=== PATIENT | male | born 1940 | race Caucasian/White ===

== ENCOUNTER 2023-04-06 11:36 | Inpatient (IN) | payer OTHER, SELFPAY ==
[2023-03-30 08:20] VITALS: BMI 35.8
--- NOTE | 2023-03-30 09:05 | HPS.HSE ---
Family Physician
-
Family Physician: Reid Davis
Chief Complaint
-
Fatigue, stating he has been nodding off more frequently.
History of Present Illness
Mr. Cronin is a very pleasant 83 yom that presents with severe symptomatic associated with fatigue. Echocardiogram from 01/04/2024 is notable for an Aortic Valve p/m 76/48, ZEKE 0.6, pk adri. 4.37, no AI, EF 66%, mild MR, PAP 26. Cardiac
catheterization from 02/23/2023 shows mild-moderate CAD at the ostium of RCA with iFR measuring above ischemic threshold. He has been evaluated and all studies reviewed by the heart team in the SDM meeting on 03/23/2023. Patient has been recommended
for a (L) TF TAVR utilizing a 26mm S3.
Medical History
Past Medical History
Past Medical History: Reports CAD (mild to moderate), HTN, Valvular Disease (aortic stenosis) and Other (carotid stenosis, hyperlipidemia, CKD stage3)
Additional Past Medical History:
MICHAEL
Past Surgical History: Reports Other (MOHs to ear, hernia repair)
Social History
Tobacco: Smoker
Alcohol: Occasional
Drug: None
Personal:
Living: With Family
Employment: Employed (moid middle school teacher)
Family History
Family History: CAD
Allergies / Home Medications
Allergies reflects when Allergies were last updated in [facility].
Home Medications with original date entered in [facility]
Allergy/Medication List:
seasonal
Review of Systems
-
History Source: Patient
Constitutional: Reports See HPI
Respiratory: Reports No Symptoms
Cardiac: Reports No Symptoms
Abdomen/GI: Reports No Symptoms
: Reports No Symptoms
Musculoskeletal: Reports No Symptoms
Neurological: Reports No Symptoms
Psych: Reports No Symptoms
Physical Exam
Physical Exam
General: Well Developed and Obese
HEENT: NormoCephalic
Respiratory: Clear
Cardiac: Murmur (III/ PRITESH)
GI: Soft and Non Tender
Genito-urinary: Deferred by me
Skin: Warm and Dry
Neuro: Awake, Alert, Oriented and AO x 3
Psych: Calm
Laboratory Results
-
03/30/2023
HH: 12.0/36.3
Plt: 226K
BUN/Creatinine: 27/1.4
GFR: 50.18
Data Reviewed
-
Diagnostic Radiology: Report Reviewed by me
CT Scan: Report Reviewed by me and Discussed with Physician
Medical Tests (Nuc Med, Echo, EKG etc): Report Reviewed by me (echocardiogram, cardiac catheterization) and Discussed with Physician
Lab Data: Labs Reviewed by me
Old Records: Reviewed (office notes with Drs. Leone and Pilar)
Impression/Plan
-
IMPRESSION: Severe aortic stenosis
PLAN: (L) TF TAVR utilizing a 26mm S3.
Continue aspirin
Cardiac rehab consult
POD #1/#30 echocardiogram
[2023-03-30 09:08] LABS: % Basophils 0.8 % (0-2); % Eosinophils 6.3 % (0-6); % Immature Granulocytes 0.2 % (0-0.5); % Lymphocytes 23.9 % (20.5-51.1); % Monocytes 8.8 % (1.7-9.3); Absolute Basophils 0.1 10^3/uL (0-0.2); Absolute Eosinophils 0.5 10^3/uL (0-0.7); Absolute Lymphocytes 2.1 10^3/uL (1.2-3.4); Absolute Monocytes 0.8 10^3/uL (0.1-0.6); Absolute Neutrophils 5.1 10^3/uL (1.4-6.5); Hematocrit 36.3 % (39.0-52.0); Mean Corp Hgb Conc. 33.1 g/dL (33.0-37.0); Mean Corpuscular Hgb 33.1 pg (27.0-31.0); Mean Platelet Volume 9.2 fL (7.4-10.4); Nucleated Red Blood Cells % 0 % (-); Platelet Count 226 10^3/uL (130-400); Red Blood Cell Count 3.63 10^6/uL (4.70-6.10); Red Cell Dist. Width 12.6 % (11.5-14.5); White Blood Cell Count 8.6 10^3/uL (4.8-10.8)
[2023-03-30 09:15] LABS: Urine Albumin Negative (Neg - Trace); Urine Bilirubin Negative (Negative); Urine Character Clear (Clear); Urine Color Yellow; Urine Glucose Negative (Negative); Urine Ketone Negative (Negative); Urine Leukocyte Negative (Negative); Urine Nitrite Negative (Negative); Urine Occult Blood Trace (Negative); Urine Urobilinogen Negative (Neg - 1+)
[2023-03-30 09:16] LABS: INR 1.07; PT 13.9 Sec (11.4-14.6)
[2023-03-30 09:17] LABS: APTT 29.1 Sec (23.4-35.0)
[2023-03-30 09:52] LABS: Urine Squamous Cell 0-2 /LPF (Few)
[2023-03-30 09:53] LABS: Urine Bacteria Few (Negative)
[2023-03-30 10:08] LABS: ALT (SGPT) 25 U/L (0-50); AST (SGOT) 29 U/L (17-59); Albumin 4.1 g/dl (3.5-5.0); Alkaline Phosphatase 84 U/L (38-126); Blood Urea Nitrogen 27 mg/dl (9-20); Carbon Dioxide 28 mmol/L (22-30); Chloride 104 mmol/L (98-107); Direct Bilirubin 0.5 mg/dl (0.0-0.4); Estimated Creatinine Clearance 46 ml/min; Glucose 99 mg/dl (70-99); Potassium 4.7 mmol/L (3.5-5.1); Sodium 137 mmol/L (135-145); Total Bilirubin 1.5 mg/dl (0.2-1.3); Total Protein 6.8 g/dl (6.3-8.2); eGFR 50.18
[2023-03-30 10:14] LABS: NT-proBNP 1590 pg/ml
--- NOTE | 2023-03-30 10:38 | CM ---
CM met w/ patient during PATs for planned TAVR.
Patient informs that he resides w/ spouse in a private, 2 story home w/ 3 YOUSIF. Functionally, patient is indep. at baseline w/ ADLs, mobility without the use of any assisted device. Pt. works as a business solutions analyst. He has a CPAP machine at home, which he
uses regularly.
Patient has Rx plan and uses [facility] on [address] in [place].
Reviewed pre and post op routine.
Soap, shower instructions and TAVR booklet reviewed/provided.
Discussed post op restrictions to include lifting and driving restrictions.
Post op appointment w/ Cards, Cardiac Rehab and visit from [facility] Transitional Care RN reviewed. Patient agreeable to visit from [facility] Transitional [facility] RN.
Plan is for TAVR 04/06.
Anticipated DC plan is for home w/ CT Transitional Care RN.
CM to follow for DC planning needs.
[2023-03-30 12:13] LABS: Glycohemoglobin (HgbA1c) 5.9 % (4.0-5.6)
[2023-04-06] VITALS (16 sets, daily range): BP systolic 95–163; BP diastolic 45–71
--- NOTE | 2023-04-06 11:43 | CM ---
Reviewed chart. Mr. Cronin is in the operating room today. Prior to admission he resides with his spouse in a two story home with three steps to enter. Prior to admission he was independent with ambulation and adls. He has a CPAP Machine at home.
He has a prescription plan and uses [facility]. Medical work-up in progress. The discharge plan is to return hoe with his spouse and a home visit by the Cardiothoracic Transitional Care Nurse when medically stable.
[2023-04-06 14:37] LABS: ACT-LR - POC 327 Seconds (116-155)
[2023-04-06 14:52] LABS: ACT-LR - POC 294 Seconds (116-155)
--- NOTE | 2023-04-06 14:58 | W.CVOR.SURPR ---
CVOR Surgeon Immed Pre Op
-
I have examined this patient prior to performance of the scheduled procedure.
The patient's condition is unchanged from the time of the dictated/written History and
Physical and the patient is able to undergo the scheduled procedure.
--- NOTE | 2023-04-06 14:58 | W.IMMPOSTOP ---
Surgical Immed Post Op Note
-
Dictated: [id number]
STRUCTURAL HEART PROCEDURE NOTE: TAVR
Preoperative Dx:
Severe aortic stenosis (P/M 76/48)
Carotid stenosis
CKD3
HTN/HLD
MICHAEL
Postoperative Dx:
Same
Procedures:
1) R CUSTOM APPLICATOR access w/ tactile, U/S, and fluoroscopic guidance, micropuncture technique, limited angiography, 6Fr sheath placement
2) R CFV access w/ U/S and fluoroscopic guidance, seldinger technique, 6Fr sheath placement
3) L CUSTOM APPLICATOR access w/ tactile, U/S, and fluoroscopic guidance, micropuncture technique, limited angiography, 6Fr sheath placement
4) Placement of temporary RV pacing wire via R CFV w/ threshold testing
5) Placement of pigtail catheter in RCC w/ limited aortography & confirmation of co-planar valve deployment angles
6) Placement of perclose sutures x 2 into L CUSTOM APPLICATOR w/ 8Fr sheath placement
7) Placement of Florez E-sheath via R CUSTOM APPLICATOR (systemic heparinization)
8) Wire purchase across stenotic aortic valve
9) L TF TAVR w/ placement of 26mm PORTILLO 3 valve
10) Completion aortography
11) Completion TTE (no AI, mean gradient 7mmHg)
12) Removal of valve delivery system/Florez E-sheath w/ L CUSTOM APPLICATOR mgmt w/ perclose sutures x 2; 8Fr angioseal, manual pressure
13) Completion ileofemoral angiography
14) Removal of R CUSTOM APPLICATOR access w/ mgmt w/ 6Fr angioseal; manual pressure
15) Removal of temporary pacing wire and R CFV sheath; manual pressure
Marker Machine:
Dr. Lion Leone
Cardiac Surgeon:
Dr. Girish Segura
Anesthesia:
MAC & local to B/L groins
Cath Data:
Start: 1400hrs, Deploy: 1438hrs, End: 1453hrs
FT: 9.4min, mGy: 432.50, DAP:51.8314, Contrast: 119mL
LVEDP: 22mmHg
Post-TTE: Mean gradient 7mmHg, no AI
Implants:
Perclose x 2
6Fr angioseal x 1
8Fr angioseal x 1
Florez Lifesciences, 26mm, Model [id number], SN [id number]
Complications:
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
Condition:
Stable/guarded to recovery
--- NOTE | 2023-04-06 15:01 | ITS.CL.TAVR ---
Dispatcher [employer] - TAVR Report
TAVR PRocedure
Procedure Report:
TRANSCATHETER AORTIC VALVE REPLACEMENT
Date of Procedure: April 06, 2023
Referring: Dr. Lion Leone
Operators: Drs. Lion Leone and Girish Segura
PROCEDURE PERFORMED:
1. Successful placement of 26 mm Florez Julianna S3 aortic valve via left common femoral approach.
PREPROCEDURE NYHA CLASS: 3
DESCRIPTION OF PROCEDURE: The patient was referred for assessment of severe symptomatic aortic stenosis and following a comprehensive evaluation it was felt that transcatheter aortic valve replacement (TAVR) would be the most appropriate treatment.
Informed consent was obtained prior to the procedure. A 'time-out' was called and the procedural plan was verbally confirmed by anesthesia, surgery, perfusion, and laborer wrecking and salvaging staff.
Arterial access was obtained in the right common femoral artery using ultrasound guidance and micropuncture technique. A 6 Fr sheath was inserted. Ultrasound guidance was then utilized to gain access into the right common femoral vein and a 6 Fr
sheath was inserted. Attention was then turned to accessing the left common femoral artery using ultrasound guidance and micropuncture technique. A 6 New Zealander sheath was inserted. Angiography revealed appropriate positioning of the arteriotomy 4.
Closure with 2 Perclose devices.
A transvenous pacemaker wire was then advanced to the right ventricular apex where excellent pacing thresholds were obtained.
An angled pigtail catheter was then advanced through the right common femoral sheath and positioned in the proximal ascending thoracic aorta / right coronary cusp. Angiography was performed to define a coplanar angle facilitating positioning and
delivery of the TAVR device. UKRAINIAN 0/INVISIBLE BRACES ORTHODONTIST 12 appear to be a reasonable coplanar angle.
Preclosure of the left femoral arteriotomy was then performed using 2 Perclose devices and was followed by placement of an 8 Fr aterial sheath.
An AL-1 catheter was then advanced to the proximal descending thoracic aorta over 0.035' J-tipped guidewire. An Amplatz Extra-Stiff wire was then advanced through the AL-1 catheter to the proximal descending thoracic aorta. The AL-1 catheter was
removed and the supportive wire was utilized to facilitate delivery of the Florez eSheath and dilator. Heparin, 9000 units, was administered and the ACT was monitored throughout the procedure.
The AL-1 catheter was then readvanced through the Florez eSheath. The 0.035' stiff wire was allowed to drift across the aortic arch and the AL1 was positioned just above the aortic valve. The stenotic leaflets were probed with a Soft-tip Straight
wire. The aortic leaflets were crossed and the AL-1 catheter followed the Soft-tip Straight wire to the mid left ventricle. The wire was removed. Left ventricular end-diastolic pressures was measured at 22 mmHg.
An Amplatz Extra-Stiff wire with a generous curved tip was then advanced to the mid left ventricle. The AL-1 catheter was removed and the Amplatz wire was left in place in order to facilitate delivery of the Florez delivery system. A 26 mm
Florez JULIANNA S3 valve was brought to the table and the orientation of the valve on the balloon delivery system was confirmed by all operators. The JULIANNA S3 valve was advanced through the eSheath and into the proximal descending thoracic aorta.
The JULIANNA valve was centered on the delivery balloon and the entire system was retroflexed as across the aortic arch in an UKRAINIAN projection. The JULIANNA S3 delivery system was then advanced across the stenotic aortic leaflets. The pusher was
retracted. Angiography confirmed appropriate positioning of the valve and rapid pacing was undertaken. The 26 mm JULIANNA S3 valve was deployed during rapid pacing. Valve deployment was uneventful. Aortography following valve deployment suggested
no to trivial aortic insufficiency while the wire was still across the valve in the left ventricle.
The post valve deployment transthoracic echocardiogram was notable for 7 mmHg
The Florez valve delivery system was removed. The Florez eSheath was removed and the Perclose knots were advanced to the arteriotomy site. Hemostasis was suboptimal and an 8 New Zealander sheath was reinserted into the left common femoral artery with
excellent hemostasis. Aortography with left common femoral runoff demonstrated no extravasation around the sheath and the decision was made to place an 8 New Zealander Angio-Seal which achieved excellent hemostasis in the left common femoral artery.
A 6 New Zealander Angio-Seal was then utilized to obtain hemostasis in the right common femoral artery. The temporary pacemaker was removed and manual pressure was held over the 6 New Zealander femoral venous access site.
Protamine was administered to reverse the intravenous anticoagulant.
Fluoro Time: 9.4 min, Dose: 432.5 mGy, DAP : 51.8 Gy.cm2
CONCLUSIONS:
1. Severe symptomatic aortic stenosis. Successful deployment of a 26 mm JULIANNA S3 valve with a post valve deployment mean gradient of 7 mmHg
Copy to: Dr. Lion Leone
--- NOTE | 2023-04-06 15:05 | W.PN.UPDATE ---
Update Note
Progress Note Update
Reviewed Mr. Cronin with the heart team in the preTAVR SDM meeting and confirmed a 26mm S3 via (L) transfemoral access. Patient will resume aspirin post TAVR. LVEDP 22mmHg. #26mm S3 (serial# [id number]) successfully deployed via (L) transfemoral
access. Post implant MG 7mmHg.
--- NOTE | 2023-04-06 16:49 | PTCARENOTE ---
Pt received post TAVR awake, alert and oriented. Bilateral groin sites WNL. Bedrest and flat maintained. Good pedal pulses and neuro checks WNL. Pt denies any pain or sob. Room air sat 96%.
[2023-04-06] MEDS: STERILE WATER FOR INJECTION 16 ML IV (17:29)
[2023-04-06] MEDS: ZINACEF 1500 MG IV (17:30)
[2023-04-06] MEDS: NON-FORMULARY ITEM 500 MG PO (17:31)
[2023-04-06] MEDS: STERILE WATER FOR INJECTION 8.30000000000000071 ML IV (20:13)
[2023-04-06] MEDS: FLUSH (NSS) 1 FLUSH IV (20:14)
[2023-04-06] MEDS: ZINACEF 750 MG IV (20:14)
[2023-04-06] MEDS: TENORMIN 25 MG PO (22:16)
[2023-04-06] MEDS: ZYRTEC 10 MG PO (22:16)
--- NOTE | 2023-04-07 02:08 | PTCARENOTE ---
Received patient at change of shift this PM. AAOx3. He is answering all questions appropriately and his neurological checks have been intact. His pupils (+3) are equal, round, and reactive. He has normal strength in all extremities. VSS. He is NSR
on the monitor. HR in the 70s-80s. INT patent. He denies chest pain or discomfort. His B/L groin sites appear clean, dry, and intact. He is receptive to teaching and motivated. We discussed his medications and he has no further questions about these
at this time. He denies pain and appears comfortable in bed. Will continue to monitor.
[2023-04-07 03:58] VITALS: BP 126/47
[2023-04-07 04:38] LABS: Hematocrit 30.4 % (39.0-52.0); Hemoglobin 10.2 g/dL (13.0-18.0); Mean Corp Hgb Conc. 33.6 g/dL (33.0-37.0); Mean Corpuscular Hgb 33.4 pg (27.0-31.0); Mean Corpuscular Volume 99.7 fL (80.0-94.0); Mean Platelet Volume 9.4 fL (7.4-10.4); Platelet Count 168 10^3/uL (130-400); Red Blood Cell Count 3.05 10^6/uL (4.70-6.10); Red Cell Dist. Width 12.9 % (11.5-14.5); White Blood Cell Count 8.6 10^3/uL (4.8-10.8)
[2023-04-07 05:00] LABS: Blood Urea Nitrogen 27 mg/dl (9-20); Calcium 8.4 mg/dl (8.4-10.2); Carbon Dioxide 23 mmol/L (22-30); Chloride 104 mmol/L (98-107); Estimated Creatinine Clearance 54 ml/min; Glucose 87 mg/dl (70-99); Potassium 4.7 mmol/L (3.5-5.1); Sodium 136 mmol/L (135-145); eGFR > 60.00
[2023-04-07 05:06] VITALS: BMI 35.2
--- NOTE | 2023-04-07 05:42 | W.PN.CT ---
Addendum entered and electronically signed by Girish Segura MD 04/07/23 08:10:
I saw and examined the patient.
The PA's note was reviewed and I agree with the note.
Comment:
POD#1
No major issues. LBBB resolved, tolerated BB
- ASA only anticoagulation
- Echocardiogram today
- Resume home meds
- D/C home today
Original Note:
Today's Communication / Plan
-
-pod #1
-no issues overnight
-transient LBBB postop TAVR-resolved, tolerated Atenolol last night
-nsr 60s, frequent PACs overnight. No piero or pauses
-Echo today
-current meds (ASA, Lipitor, Atenolol, Zestril)
-encourage IS, OOB, ambulate
Assessment / Plan
-
- Severe symptomatic - s/p L TF TAVR w/ placement of 26mm PORTILLO 3 valve on 04/06/23, pod #1
- LVEDP: 22mmHg
- Post-TTE: Mean gradient 7mmHg, no AI
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
- moderate CAD (70% OM2)
- Carotid stenosis
- CKD3 (Cr 1.4)
- HTN/HLD
- MICHAEL
- pre DM (HgA1c 5.9)
- current smoker
- ear/back Moh's surgery
- hernia repair
- allergic rhinitis
- dental extraction recently - finished course of Amoxil preop
- Acute postop LBBB - transient
Discussed patient care with: Nursing and Care Team
Subjective
Procedure
- s/p L TF TAVR w/ placement of 26mm PORTILLO 3 valve on 04/06/23
-
Date of Service: April 06, 2023
Objective Data
-
Lab Results
03/30/23 08:34
03/30/23 08:34
PT 13.9 Sec (11.4-14.6) 03/30/23 08:34
INR 1.07 03/30/23 08:34
APTT 29.1 Sec (23.4-35.0) 03/30/23 08:34
Vital Signs
Vital Signs
Temp Pulse Resp BP Pulse Ox
97.6 F 87 18 162/64 97
04/06/23 22:15 04/06/23 22:19 04/06/23 22:15 04/06/23 22:16 04/06/23 22:15
SaO2: 97
Physical Exam
-
General: Awake and AOx3
Cardiovascular: Regular rate & rhythm, No Murmurs and No Rub
Respiratory: Wheeze (mild occasional with inspiration. No rales) and Decreased Breath Sounds
Incision: Other (groins are cdi, soft, nontender, no hematoma b/l)
Extremities: Edema +1 (2+ PT b/l)
Data Reviewed
-
Lab Results: Results Reviewed
Medications: Active Meds Reviewed
Chest X-Ray: Report Reviewed and Image Reviewed
ECG: Report Reviewed and Image Reviewed
[2023-04-07 07:33] VITALS: BP 144/58
--- NOTE | 2023-04-07 08:15 | W.PN.ANS.POP ---
Anesthesia Post Operative
- Anesthesia Post Op Note
Vital Signs Stable-See Nursing Note: Yes
Airway Patent: Yes
Adequate Pain Control: Yes
Change in Mental Status: No
Current Postoperative Nausea & Vomiting: No
Anesthesia Complications: No
General Anesthetic Recall: No
Unplanned Admission: No
Post Op Hydration Adequate: Yes
[2023-04-07] MEDS: ASPIR LOW (ENTERIC COATED) 81 MG PO (08:43)
[2023-04-07] MEDS: ZESTRIL 10 MG PO (08:43)
[2023-04-07] MEDS: LIPITOR 40 MG PO (08:43)
--- NOTE | 2023-04-07 09:08 | W.DCSUMMARY ---
Addendum entered and electronically signed by XIOMARA Carey 04/07/23 13:24:
Edit: Due to the patient's transient LBBB, he will be discharged home with a heart monitor.
Original Note:
Discharge Summary
Discharge Data
Date of Admission: 04/06/23
Date of Discharge: 04/07/23
Total time spent discharging patient (in min): 25
-
Pending Results: No
Hospital Course
Primary care physician:
Reid Davis
Outpatient bevel mill operator:
Carl Lenoe
Inpatient consultants:
[facility].
Procedures:
1. Left transfemoral transcatheter aortic valve replacement with placement of #26 mm PORTILLO 3 valve
Primary Diagnosis:
1. Severe Aortic Stenosis
Secondary Diagnoses:
1. Chronic kidney disease stage III
2. Carotid Stenosis
3. Hypertension
4. Hyperlipidemia
5. Obstructive sleep apnea
HPI: 83-year-old male with severe aortic stenosis presents on 04/06 for an elective transfemoral transcatheter aortic valve replacement with Dr. Segura.
Hospital course:
Patient was electively admitted on 04/[address] Segura. He received a successful placement of a number 23 mm PORTILLO 3 aortic valve in the Passenger Car [employer]. Immediately post-procedure patient developed a new left bundle branch block that
resolved. He returned to PACU for recovery and patient was transferred to IVU overnight and was restarted on his home regimen. On 2 postop day #1 patient received a chest x-ray which was stable, an echocardiogram that showed a mean gradient of 7.
He was deemed stable for discharge and discharge instructions were reviewed with the patient.
Home medication changes:
None
Discharge Plan
-
Patient Disposition: Home (Routine Discharge)
Discharge Diagnosis/Procedures: TF TAVR
Diet: Low Fat, Low Cholesterol and 2 Gram Sodium
Activity: As tolerated
Driving Restrictions: No driving for 1 week
Bathing Restrictions: OK to Shower
Others Tests: 30-day follow up echocardiogram:
Other Services: Cardiac Rehab
Wound Care: No lotions, powders, or creams
Specialty Instructions: Weigh Daily- Call MD for wt gain/loss 3 lbs overnight/5 lbs in 1 week
Referrals:
CT Transitional Care Nurse [Outside] - in one to two days
(
The Cardiothoracic Transitional Care Nurse will call you to set up a visit in 1-2 days.)
Reid Davis MD [Family Provider] - in four to six weeks (Please make an appoinment in four to six weeks.)
Denise Nix PA-C [Specified Professional Personl] - 05/03/23 9:40 am
Prescriptions:
Continued
cetirizine 10 MG tablet
10 mg PO HS
aspirin 81 MG tablet,delayed release (DR/EC)
81 mg PO DAILY
fluticasone propionate 1 SPRAY spray,suspension
2 spray intranasal DAILY
atenolol 25 MG tablet
25 mg PO HS
lisinopril 10 MG tablet
10 mg PO DAILY
atorvastatin 40 mg Tablet
40 mg PO DAILY
vitamin Q72-blsza acid 0.5-1 mg Tablet
1 tab PO DAILY
Discontinued
amoxicillin 500 mg Tablet
500 mg PO Q8H
Discharge Orders:
Discharge Patient (As Directed); Ordered 04/07/23
Ordered By: Alexsandra Adhikari
Care Plan Goals
Care Plan Goals:
Problem: Readiness for enhanced knowledge related to diagnosis and treatment plan
Goal: Understand your diagnosis and treatment plan needs, including medications if applicable.
Instructions: Know your diagnosis, underlying causes and treatment plan options, including medications if applicable. Consult with your health care team to learn about your diagnosis and treatment plan, including medications if applicable.
--- NOTE | 2023-04-07 09:16 | W.PN.CARDCBS ---
Today's Communication / Plan
-
Okay for discharge if echo okay
Will need ambulatory telemetry prior to discharge given transient left bundle branch block
From my standpoint, okay to continue atenolol
Impression / Plan
-
Impression:
Florez PORTILLO 3 TAVR 04/06/23
Moderate CAD, 70% OM 2
CKD
Hypertension/hyperlipidemia
Obstructive sleep apnea
Smoker
Transient left bundle branch block post procedure, resolved
Plan:
He looks well despite transient left bundle branch block.
Echo currently in progress
Ambulatory quality assurance monitor body to be placed prior to discharge given transient left bundle branch block.
Presuming echo looks good, he will be okay for discharge.
Progress Note - Solutions Architect
Subjective
Date of Service: April 07, 2023:
Allergies: None
Meds: Reviewed
Outpatient meds: Reviewed
PMH/PSH/SH/FH: Reviewed
Review of systems: Negative except as above
Hemoglobin 10.2, BUN/creatinine 27 and 1.2, potassium 4.7
Chest x-ray NAD
ECG April 07: Sinus rhythm PACs, new left bundle
ECG today: Sinus rhythm, PACs, biphasic T waves V4 through V6 consider lateral ischemia, left bundle has resolved
Objective
Labs:
04/07/23 04:20
04/07/23 04:20
Labs
Hgb 10.2 g/dL (13.0-18.0) L 04/07/23 04:20
Hct 30.4 % (39.0-52.0) L 04/07/23 04:20
Plt Count 168 10^3/uL (130-400) 04/07/23 04:20
PT 13.9 Sec (11.4-14.6) 03/30/23 08:34
INR 1.07 03/30/23 08:34
APTT 29.1 Sec (23.4-35.0) 03/30/23 08:34
Sodium 136 mmol/L (135-145) 04/07/23 04:20
Potassium 4.7 mmol/L (3.5-5.1) 04/07/23 04:20
BUN 27 mg/dl (9-20) H 04/07/23 04:20
Creatinine 1.2 mg/dL (0.7-1.3) 04/07/23 04:20
Glucose 87 mg/dl (70-99) 04/07/23 04:20
Vital Signs and I&O:
Vital Signs
Temp Pulse Resp BP Pulse Ox
36.7 C 81 16 144/58 96
04/07/23 07:31 04/07/23 08:43 04/07/23 07:31 04/07/23 08:43 04/07/23 07:31
Vital Signs
Temp Pulse Resp BP Pulse Ox
36.7 C 81 16 144/58 96
04/07/23 07:31 04/07/23 08:43 04/07/23 07:31 04/07/23 08:43 04/07/23 07:31
Intake & Output
04/05/23 04/06/23 04/07/23 04/08/23
07:59 07:59 07:59 07:59
Intake Total 720 / 720
Balance 720 / 720
Physical Exam
Physical Exam
No acute distress, echo in progress
144/58, pulse 81, resp rate 16, afebrile
Head neck exam unremarkable, lungs few wheezes, cardiac regular rate rhythm without obvious murmur JVD okay, carotids okay, abdomen benign, extremities without edema, pulses palpable, neuro nonfocal, musculoskeletal intact
[2023-04-07 11:06] VITALS: BP 123/54
[2023-04-07 11:13] VITALS: BP 137/56
[2023-04-07 11:16] VITALS: BP 123/54; BP 137/56; PULSE 67
--- NOTE | 2023-04-07 14:29 | W.PN.UPDATE ---
Update Note
Progress Note Update
Rhythmstar monitor applied to patient on discharge. Reviewed instructions on how to apply, report symptoms, charge and shade cloth finisher with patient and his . Allowed for and answered questions.
== END 2023-04-07 14:41 | disposition home or self-care (01) | DRG 267 ==
LOC: IVU 11:36
PROVIDERS: Nurse Practitioner; ADMITTING PHYSICIAN Thoracic Surgery (Cardiothoracic Vascular Surgery); CONSULT PHYSICIAN Internal Medicine Interventional Cardiology; FAMILY PHYSICIAN Family Medicine
PROC: 02RF38Z Replacement of Aortic Valve with Zooplastic Tissue, Percutaneous Approach (ICD-10-PCS; 2023-04-06)
DX: I35.0 Nonrheumatic aortic (valve) stenosis (principal); I44.7 Left bundle-branch block, unspecified; I49.1 Atrial premature depolarization; I65.29 Occlusion and stenosis of unspecified carotid artery; N18.30 Chronic kidney disease, stage 3 unspecified; I12.9 Hypertensive chronic kidney disease with stage 1 through stage 4 chronic kidney disease, or unspecified chronic kidney disease; E78.5 Hyperlipidemia, unspecified; G47.33 Obstructive sleep apnea (adult) (pediatric); I25.10 Atherosclerotic heart disease of native coronary artery without angina pectoris; F17.200 Nicotine dependence, unspecified, uncomplicated; R73.03 Prediabetes
CPT/HCPCS: 93308; 33361; 36415; 71045; 71046; 80048; 80053; 81003; 81015; 82248; 83036; 83880; 85025; 85027; 85347; 85610; 85730; 86850; 86900; 86901; 87070; 93005; 93306; 93321; 93325; C1760; C1769; C1894; Q9967

== ENCOUNTER 2023-04-08 17:17 | Inpatient (IN) | payer OTHER, SELFPAY ==
[2023-04-08 14:05] VITALS: BP 144/46
--- NOTE | 2023-04-08 14:42 | CON.CAR ---
Consultation
Consultation Request
Date/Time Consultation Requested: 04/08/2023 at 1500
Date/Time Consultation Performed: 04/08/2023 at 1600
Requesting Provider: Dr. Dae Faustin
Performing Provider: Lion Cronin
Reason for Consultation: Heart block with A-V dissociation
Medical History
-
Chief Complaint: Abnormal ambulatory telemetry following TAVR
History of Present Illness:
83-year-old man with history of aortic stenosis, nonobstructive CAD who underwent Florez PORTILLO 3 TAVR on April 06. He had transient left bundle branch block postprocedure but otherwise an uncomplicated course and was discharged with a
rhythm*monitor yesterday. We received a transmission this morning suggesting atrial tachycardia or flutter with variable block and a ventricular response of approximately 60. EKG in the emergency department showed probable sinus tachycardia with a
rate in the 130s with a left bundle branch morphology escape rhythm producing A-V dissociation, ventricular rate 60. Patient is asymptomatic. ECG preprocedure showed sinus rhythm with PACs and normal QRS duration.
Past Medical History
Past Medical History: CAD (70% OM lesion), HTN, Hypercholesterolemia, Valvular Disease (Aortic stenosis status post Florez PORTILLO 3 TAVR April 06, 2023) and Other (CKD 3, obstructive sleep apnea, ongoing tobacco abuse, high-grade left carotid
artery stenosis)
Past Surgical History: Other (Herniorrhaphy, Mohs surgery, lumbar surgery,)
Social History
Tobacco: Smoker
Alcohol: Occasional
Drug: None
Personal:
Living: With Family
Employment: Retired
Family History
Family History: Reviewed & Not Pertinent
Allergies / Home Medications
Allergy/AdvReac Type Severity Reaction Status Date / Time
pollen extracts Allergy SEASONAL-NASAL Verified 04/06/23 16:07
SYMPTOMS
Medication Instructions Recorded Confirmed Type
aspirin 81 mg tablet,delayed 81 mg PO DAILY 03/30/18 04/06/23 History
release
cetirizine 10 mg tablet 10 mg PO HS 03/30/18 04/06/23 History
fluticasone propionate 50 2 spray intranasal DAILY 03/30/18 04/06/23 History
mcg/actuation nasal
spray,suspension
atenolol 25 mg tablet 25 mg PO HS 08/18/21 04/06/23 History
lisinopril 10 mg tablet 10 mg PO DAILY 08/18/21 04/06/23 History
atorvastatin 40 mg tablet 40 mg PO DAILY 02/23/23 04/06/23 History
vitamin B12 0.5 mg-folic acid 1 mg 1 tab PO DAILY 02/23/23 04/06/23 History
tablet
Review of Systems
-
All other systems: Negative unless noted
Physical Exam
Vital Signs
Temp Pulse Resp BP Pulse Ox
36.6 C 62 16 144/46 97
04/08/23 14:05 04/08/23 14:05 04/08/23 14:05 04/08/23 14:05 04/08/23 14:05
Physical Exam
General: No Apparent Distress
HEENT: Normocephalic
Respiratory: Wheezes (Rare scattered wheezes)
Cardiac: Regular Rhythm, Murmur (Very soft systolic murmur, JVD okay) and Peripheral Edema (Trace mild)
Musculoskeletal: No Clubbing, No Cyanosis and Edema (Mild)
Skin: Warm
Neuro: Awake
Psych: Calm
Impression / Plan
-
Impression:
Atrial tachycardia/sinus tachycardia with at least second-degree AV block/A-V dissociation and junctional escape with left bundle, new since TAVR 04/06/2023
Florez PORTILLO 3 TAVR 04/06/23
Moderate CAD, 70% OM 2
CKD
Hypertension/hyperlipidemia
Obstructive sleep apnea
Smoker
Plan:
Will observe on telemetry, hold atenolol, ask EP to review regarding need for pacemaker implantation.
Currently, patient appears to be stable hemodynamically.
Data Reviewed
-
EKG: Tracing Personally Visualized and interpreted
Labs: Labs Reviewed by me (Hemoglobin 10.4, platelets 150, BUN and creatinine 38 and 1.8, creatinine had been 1.2, troponin is 1.2, proBNP is 3610, normal TSH)
Old Records: Reviewed
[2023-04-08 15:34] LABS: % Basophils 0.3 % (0-2); % Eosinophils 3.6 % (0-6); % Immature Granulocytes 0.6 % (0-0.5); % Lymphocytes 15.9 % (20.5-51.1); % Monocytes 14.4 % (1.7-9.3); % Neutrophils 65.2 % (42.2-75.2); Absolute Eosinophils 0.3 10^3/uL (0-0.7); Absolute Immature Granulocytes 0.1 10^3/uL (0-0.05); Absolute Lymphocytes 1.4 10^3/uL (1.2-3.4); Absolute Monocytes 1.3 10^3/uL (0.1-0.6); Absolute Neutrophils 5.7 10^3/uL (1.4-6.5); Hematocrit 30.7 % (39.0-52.0); Hemoglobin 10.4 g/dL (13.0-18.0); Mean Corp Hgb Conc. 33.9 g/dL (33.0-37.0); Mean Corpuscular Hgb 32.9 pg (27.0-31.0); Mean Corpuscular Volume 97.2 fL (80.0-94.0); Mean Platelet Volume 9.6 fL (7.4-10.4); Nucleated Red Blood Cells % 0 % (-); Platelet Count 150 10^3/uL (130-400); Red Blood Cell Count 3.16 10^6/uL (4.70-6.10); Red Cell Dist. Width 12.9 % (11.5-14.5); White Blood Cell Count 8.7 10^3/uL (4.8-10.8)
[2023-04-08 15:50] LABS: ALT (SGPT) 17 U/L (0-50); AST (SGOT) 34 U/L (17-59); Albumin 3.3 g/dl (3.5-5.0); Alkaline Phosphatase 65 U/L (38-126); Blood Urea Nitrogen 38 mg/dl (9-20); Calcium 8.6 mg/dl (8.4-10.2); Carbon Dioxide 26 mmol/L (22-30); Chloride 100 mmol/L (98-107); Glucose 123 mg/dl (70-99); Potassium 4.5 mmol/L (3.5-5.1); Sodium 135 mmol/L (135-145); Total Bilirubin 1.6 mg/dl (0.2-1.3); Total Protein 5.8 g/dl (6.3-8.2); eGFR 37.12
[2023-04-08 15:57] LABS: NT-proBNP 3610 pg/ml
--- NOTE | 2023-04-08 16:30 | ED.GENMED ---
History of Present Illness
General
Chief Complaint: Heart Rate Problem
Source: patient
Exam Limitations: none
Time Seen by Provider: 04/08/23 14:59
Nursing documentation reviewed up to this point in time: agreed with
Travel History
Have you had any contact with someone who has COVID-19?: No
Do you have any symptoms of coronavirus? Fever > 100 degrees, chills, cough, shortness of breath, sore throat, loss of taste or smell, muscle aches, or headache?: No
History of Present Illness
History of Present Illness:
Patient status post TAVR procedure, presents to ED after Holter monitor showed possible irregular heart rhythm. Prior to discharge, after the procedure, patient did have transient episode of left bundle branch block on the monitor, with
necessitated patient being discharged home on Holter monitor. It is Holter monitor that irregular heart rhythm today, without any symptoms. Patient was advised to come to ED by Dr. WILL Cronin, cardiology. Patient otherwise denies chest pain or
shortness of breath. Denies dizziness. Denies palpitations. Denies nausea or vomiting.
Past History
Past History
ED Past Medical History: HTN
Social History
Tobacco: Smoker
Personal:
Living: with family
Employment: Employed
Review of Systems
Review of Systems
Allergies reviewed?: Yes
All Other Systems: ROS reviewed and negative except as documented in HPI and ROS
Constitutional: Reports no symptoms
EENT: Reports no symptoms
Respiratory: Reports no symptoms
Cardiac: Reports no symptoms
ABD/GI: Reports no symptoms
: Reports no symptoms
Musculoskeletal: Reports no symptoms
Skin: Reports no symptoms
Neurological: Reports no symptoms
Phy Exam
Physical Exam
Physical Exam:
Physical Exam
General: no apparent distress, not acutely ill. afebrile
Head: nc/at. eomi
Neck: supple. no meningeal signs.
Heart: s1/s2 regular rate and rhythm, no murmur. equal radial pulses.
Lungs: no acute respiratory distress. clear bilaterally
Abdomen: normal bowel sounds. not tender.
Neuro: alert and oriented. no focal neurological deficits
Skin: no rash
Psychiatric: well kept. interactive and cooperative
Extremities: no edema. no calf tenderness.
Course
Orders/Labs/Results
Orders:
Orders
04/08/23 14:11
Electrocardiogram (*1) Urgent
Reason for Study: Abnormal EKG
EKG- Treatment ONCE
04/08/23 Dinner
Cholesterol Lowering
At Your Request: Full Participation
Cholesterol Lowering: Sodium, 2 Gram
04/08/23 15:25
Complete Blood Count/With Diff Urgent
Comprehensive Metabolic Panel Urgent
Magnesium Urgent
NT-proBNP Urgent
TSH Reflex To Free T4 Urgent
Troponin I Urgent
04/08/23 16:09
Add On- LAB Urgent
Tests Added?: TSH with reflex to T4
04/08/23 16:31
Admit/Transfer Patient As Directed
Co-Sign Provider:
Level of Care: Inpatient admission
Assign to:: IVU
Physician / Group: hosp
Diagnosis: Third-degree heart block
Reason for Hospitalization: Heart block
Expected length of stay greater than two midnights?: Yes
ELOS- Estimated Length of Stay in days: 2
I certify the patient meets the requirements for IP care: Yes
Reason for Overnight Stay: New Dysrhythmia
04/08/23 16:33
Code Status As Directed
Resuscitation Status: Full Code
04/08/23 16:39
CARDIOLOGY CONSULT Routine
Consulting Provider: Lion Cronin
Was physician already notified: Yes
04/08/23 19:40
0.9% Sodium Chloride 1000 ml [Nss] 1,000 ml IV 60 mls/hr
Acetaminophen [Tylenol] 650 mg PO Q4HPRN PRN
Aspirin Low Dose EC [Aspir Low (Enteric Coated)] 81 mg PO QPM
04/08/23 19:40
Activity As Directed
Activity Level: With Assistance
Pneumatic Compression Sleeves As Directed
Type: Knee high
Vital Signs As Directed
Frequency: Per unit guidelines
Pulse Ox/spot Check [RESP] Routine
Quantity: 1
DX Deep Vein Thrombosis Video Routine
04/08/23 20:00
Heparin 5,000 units SC Q12
04/08/23 22:00
Cetirizine HCl [Zyrtec] 10 mg PO HS
04/08/23 23:14
Troponin I Q6H
04/09/23 03:45
Basic Metabolic Panel IN AM
Complete Blood Count/No Diff IN AM
Troponin I Q6H
04/09/23 06:00
EKG [Electrocardiogram (*1)] IN AM
Reason for Study: Abnormal EKG
NPO
Allow oral meds: Yes
Allow clear liquids: No
04/09/23 08:00
Atorvastatin [Lipitor] 40 mg PO DAILY
Lisinopril [Zestril] 10 mg PO DAILY
fluticasone propionate 2 spray NASAL DAILY
04/09/23 12:00
Cyanocobalamin [Vitamin B-12] 1,000 mcg PO NOON
Abnormal Lab Results
04/08/23
15:25
RBC 3.16 L 10^6/uL
(4.70-6.10)
Hgb 10.4 L g/dL
(13.0-18.0)
Hct 30.7 L %
(39.0-52.0)
MCV 97.2 H fL
(80.0-94.0)
MCH 32.9 H pg
(27.0-31.0)
Abs Immat Gran (auto) 0.1 H 10^3/uL
(0-0.05)
Absolute Monos (auto) 1.3 H 10^3/uL
(0.1-0.6)
Immature Gran % 0.6 H %
(0-0.5)
Lymphocytes % 15.9 L %
(20.5-51.1)
Monocytes % 14.4 H %
(1.7-9.3)
BUN 38 H mg/dl
(9-20)
Creatinine 1.8 H mg/dL
(0.7-1.3)
Glucose 123 H mg/dl
(70-99)
Total Bilirubin 1.6 H mg/dl
(0.2-1.3)
Troponin I 1.210 H* ng/ml
Total Protein 5.8 L g/dl
(6.3-8.2)
Albumin 3.3 L g/dl
(3.5-5.0)
04/08/23 15:25
04/08/23 15:25
Vital Signs
Initial and Last Documented VS:
Initial Vital Signs
Temp Pulse Resp BP Pulse Ox
97.8 F 62 16 144/46 97
04/08/23 14:05 04/08/23 14:05 04/08/23 14:05 04/08/23 14:05 04/08/23 14:05
Last Documented Vital Signs
Temp Pulse Resp BP Pulse Ox
98.0 F 64 18 147/78 96
04/09/23 07:29 04/09/23 11:00 04/09/23 07:29 04/09/23 07:29 04/09/23 07:51
MDM/Problems Addressed
MDM/Problems Addressed:
Pt evaluated in ED by Dr.DL Cronin, including review of EKG which revealed potential A-V dissociation versus slow atrial flutter rhythm. Patient will be admitted tonight for further evaluation, including potential pacemaker placement.
*Critical Care Note
Total Time (30-74mins, 75-104mins- exclusive of procedures): Not Applicable
ED Attending Note
-
Portions of this chart may have been created with voice recognition software.� Occasional wrong word or��sound alike� substitutions may have occurred due to the inherent limitations of voice recognition software.
Discharge Plan
Departure
Patient Disposition: Admit
Date of Disposition: 04/08/23
Time of Disposition: 16:39
Admit to: IVU
Presentation/result/management discussed w/ accepting MD/DO: Hospitalist
Discharge Problem:
Abnormal EKG
Interventions
Interventions:
*General Assessment Last Done: 04/08/23 14:11
*Neglect/Abuse Screening Last Done: 04/08/23 14:11
ED- Fall Risk Assessment Last Done: 04/08/23 14:11
*Nursing Disposition Last Done: 04/08/23 19:39
ED- Cardiac Assessment Last Done: 04/08/23 14:11
ED- Pulmonary Assessment Last Done: 04/08/23 14:11
Discharge Date and Time
Discharge Date/Time: 04/08/23 19:39
--- NOTE | 2023-04-08 16:40 | HPS.HSE ---
Family Physician
-
Family Physician: Reid Davis
Chief Complaint
-
Patient was told to come to the emergency room due to abnormal reading on his Holter monitor after recent valve replacement
History of Present Illness
Patient is an 83-year-old male just had a TAVR procedure on 06 April at that time he was sent home on a Holter monitor related to a history of left bundle branch block conduction delay and irregular heart rhythm and was found to have A-V
dissociation prompting need for admission and transient left bundle branch block that continued he can maintains no symptoms of chest pain shortness of breath or exertional symptoms. He denies any dizziness denies any palpitations his chronic
comorbidities include a history of obstructive sleep apnea essential hypertension bilateral carotid stenosis worse on the right along with CKD 3 and still smoker.
He took his last dose of beta-blockade in the form of atenolol 25 mg last night
Medical History
Past Medical History
Past Medical History: Reports Arrhythmia, CAD, HTN, Hypercholesterolemia, Renal Failure and Valvular Disease
Additional Past Medical History:
Prior history of obtuse marginal 70% stenosis
Past Surgical History: Reports Cardiac (TAVR April 06)
Additional Past Surgical History:
Prior hernia repair
Social History
Tobacco: Smoker
Alcohol: None
Drug: None
Personal:
Living: With Family
Employment: Employed (cab driver)
Family History
Family History: Not pertinent
Allergies / Home Medications
Allergies reflects when Allergies were last updated in [employer].
Home Medications with original date entered in [employer]
Allergy/Medication List:
Allergies
Allergy/AdvReac Type Severity Reaction Status Date / Time
pollen extracts Allergy SEASONAL-NASAL Verified 04/06/23 16:07
SYMPTOMS
Home Medications
aspirin 81 mg tablet,delayed release 81 mg PO QPM 03/30/18
cetirizine 10 mg tablet 10 mg PO HS 03/30/18
fluticasone propionate 50 mcg/actuation nasal spray,suspension 2 spray intranasal DAILY 03/30/18
atenolol 25 mg tablet 25 mg PO DAILY 08/18/21
lisinopril 10 mg tablet 10 mg PO DAILY 08/18/21
atorvastatin 40 mg tablet 40 mg PO DAILY 02/23/23
cyanocobalamin (vitamin B-12) 1,000 mcg tablet 1,000 mcg PO NOON 04/08/23
Review of Systems
-
History Source: Patient and Family
Constitutional: Reports See HPI
EENT: Reports See HPI
Cardiac: Reports See HPI
Abdomen/GI: Reports See HPI
: Reports See HPI
Neurological: Reports See HPI
Physical Exam
Vital Signs
Vital Signs
Temp Pulse Resp BP Pulse Ox
97.8 F 62 16 144/46 97
04/08/23 14:05 04/08/23 14:05 04/08/23 14:05 04/08/23 14:05 04/08/23 14:05
Physical Exam
General: Well Developed and No Apparent Distress
HEENT: NormoCephalic
Cardiac: Irregular Rhythm (A-V dissociation noted on monitor occasionally interspersed with sinus) and Peripheral Edema
GI: Soft
Musculoskeletal: Edema, Left Lower Extremity and Edema, Right Lower Extremity
Psych: Calm
Laboratory Results
-
04/08/23 15:25
04/08/23 15:25
Laboratory Results
Total Bilirubin 1.6 mg/dl (0.2-1.3) H 04/08/23 15:25
AST 34 U/L (17-59) 04/08/23 15:25
ALT 17 U/L (0-50) 04/08/23 15:25
Alkaline Phosphatase 65 U/L (38-126) 04/08/23 15:25
Troponin I 1.210 ng/ml H* 04/08/23 15:25
Data Reviewed
-
Critical Care Time (in minutes): 56
Lab Data: Labs Reviewed by me (Creatinine has risen from his baseline of 1.4-1.8/hemoglobin 10.4 stable/troponin elevation 1.2/TSH pending)
Impression/Plan
-
IMPRESSION:
Patient is an 83-year-old male just had a TAVR procedure on 06 April at that time he was sent home on a Holter monitor related to a history of left bundle branch block conduction delay and irregular heart rhythm and was found to have A-V
dissociation prompting need for admission and transient left bundle branch block that continued he can maintains no symptoms of chest pain shortness of breath or exertional symptoms. He denies any dizziness denies any palpitations his chronic
comorbidities include a history of obstructive sleep apnea essential hypertension bilateral carotid stenosis worse on the right along with CKD 3 and still smoker.
Asymptomatic A-V dissociation noted on Holter monitor/twelve-lead EKG/new onset left bundle branch block
-Status post TAVR April 06
-Hold beta-blockade
-Admit to IVU for pacemaker evaluation per electrophysiology
-Temporary pacer leads applied
-Abnormal troponin/will trend
-N.p.o. after midnight
-Cardiology consultation has seen
Essential hypertension
-Withhold further beta-blockade
-Continue lisinopril
Prior history of bilateral carotid stenosis 80% on the right
-Asymptomatic
Hyperlipidemia
-Continue atorvastatin
CKD3/with acute kidney injury
-Cautious IV fluids/avoid hypotension
-Hypoperfusion from heart block
-Monitor BMP
-Maintain MAP of 65
Obstructive sleep apnea
Smoker
B12 deficiency by history
DVT prophylaxis with heparin
Full CODE STATUS
[2023-04-08 17:07] LABS: TSH Reflex To Free T4 4.06 uIU/ml (0.47-4.68)
[2023-04-08 19:17] VITALS: BP 125/50
[2023-04-08 19:37] VITALS: BP 104/76
--- NOTE | 2023-04-08 19:45 | PTCARENOTE ---
Received patient from ED, patient oriented to room/unit. Patient denies any SOB, chest pain/discomfort. Bilateral groin sites from TAVR ecchymotic but intact. VSS, lungs clear, SPO2 97% on RA. Abd soft, non tender, voiding without issue. CORTÉS
equally, ambulates independently. Full assessment completed as documented, plan of care discussed with patient verbalizing understanding.
[2023-04-08] MEDS: NSS 1000 IV (21:30)
[2023-04-08] MEDS: ASPIR LOW (ENTERIC COATED) 81 MG PO (21:30)
[2023-04-08] MEDS: ZYRTEC 10 MG PO (21:31)
[2023-04-08] MEDS: HEPARIN 5000 UNITS SC (21:31)
[2023-04-08 23:05] VITALS: BMI 34.6
[2023-04-08 23:16] VITALS: BP 112/47
--- NOTE | 2023-04-08 23:29 | PTCARENOTE ---
Patient resting in bed comfortably, no acute changes in assessment. VSS.
[2023-04-09] VITALS (16 sets, daily range): BP systolic 93–181; BP diastolic 48–78; BMI 35.8
--- NOTE | 2023-04-09 03:55 | PTCARENOTE ---
no acute changes in assessment, VSS.
[2023-04-09 04:14] LABS: Hematocrit 27.5 % (39.0-52.0); Hemoglobin 9.4 g/dL (13.0-18.0); Mean Corp Hgb Conc. 34.2 g/dL (33.0-37.0); Mean Corpuscular Hgb 33.5 pg (27.0-31.0); Mean Corpuscular Volume 97.9 fL (80.0-94.0); Mean Platelet Volume 9.7 fL (7.4-10.4); Platelet Count 138 10^3/uL (130-400); Red Blood Cell Count 2.81 10^6/uL (4.70-6.10); Red Cell Dist. Width 12.9 % (11.5-14.5); White Blood Cell Count 7.9 10^3/uL (4.8-10.8)
[2023-04-09 04:41] LABS: Blood Urea Nitrogen 41 mg/dl (9-20); Calcium 8.2 mg/dl (8.4-10.2); Carbon Dioxide 25 mmol/L (22-30); Chloride 104 mmol/L (98-107); Estimated Creatinine Clearance 35 ml/min; Glucose 94 mg/dl (70-99); Potassium 4.2 mmol/L (3.5-5.1); Sodium 135 mmol/L (135-145); eGFR 37.12
[2023-04-09 04:48] LABS: Troponin I 0.998 ng/ml
--- NOTE | 2023-04-09 07:01 | W.PN.HOSP.TC ---
Today's Communication/Plan
-
Remains hemodynamically okay although soft blood pressures to be monitored
Continue to monitor renal status
Low-flow IV fluids
Await EP evaluation
Will defer to cardiology and EP whether to keep n.p.o. right now n.p.o. after midnight
Assessment / Plan
Assessment / Plan
Patient is an 83-year-old male just had a TAVR procedure on 06 April at that time he was sent home on a Holter monitor related to a history of left bundle branch block conduction delay and irregular heart rhythm and was found to have A-V
dissociation prompting need for admission and transient left bundle branch block that continued he can maintains no symptoms of chest pain shortness of breath or exertional symptoms.� He denies any dizziness denies any palpitations his chronic
comorbidities include a history of obstructive sleep apnea essential hypertension bilateral carotid stenosis worse on the right along with CKD 3 and still smoker.
He took his last dose of beta-blockade in the form of atenolol 25 mg last night or night of April 07
Asymptomatic A-V dissociation noted on Holter monitor/twelve-lead EKG/new onset left bundle branch block
-Status post TAVR April 06
-Hold beta-blockade
-Admit to [facility] ICU for pacemaker evaluation per electrophysiology
-Temporary pacer leads applied
-Abnormal troponin/will trend/presumed non-GA related
-N.p.o. after midnight
-Cardiology consultation has seen
Essential hypertension
-Withhold further beta-blockade
-Continue lisinopril
Prior history of bilateral carotid stenosis 80% on the right
-Asymptomatic
Hyperlipidemia
-Continue atorvastatin
CKD3/with acute kidney injury
-Cautious IV fluids/avoid hypotension
-Hypoperfusion from heart block
-Monitor BMP
-Maintain MAP of 65
Obstructive sleep apnea
Smoker
B12 deficiency by history
DVT prophylaxis with heparin
Full CODE STATUS
Anticipated Discharge: 24 - 48 hours
Subjective/Interval History
-
Date of Service: April 09, 2023
Has remained asymptomatic throughout the night and sitting up in chair no reference of any dizziness BP soft at 93/remains with intermittent signs of A-V dissociation on monitor
Objective Data
-
Labs:
Laboratory Results
04/09/23
03:45
WBC 7.9
Hgb 9.4 L
Hct 27.5 L
Plt Count 138
Sodium 135
Potassium 4.2
Chloride 104
Carbon Dioxide 25
BUN 41 H
Creatinine 1.8 H
Glucose 94
Calcium 8.2 L
Vital Signs:
Vital Signs
Temp Pulse Resp BP Pulse Ox
98.3 F 65 16 93/48 96
04/09/23 03:54 04/09/23 03:40 04/09/23 03:54 04/09/23 03:40 04/09/23 03:54
Review of Systems
-
History Source: Patient
Constitutional: Reports No Symptoms
EENT: Reports No Symptoms Reported
Respiratory: Reports No Symptoms
Musculoskeletal: Reports No Symptoms
Physical Exam
-
General: Well Developed
HEENT: Normocephalic
Respiratory: Clear to Auscultation
Cardiac: Irregular Rhythm (Periods of atrial tachycardia and sinus rhythm interspersed with periods of A-V dissociation)
GI: Soft and Nontender
Genito-urinary: No Costovertebral Tender
Musculoskeletal: No Clubbing
Neuro: Awake, Alert, Oriented, AO x 3 and No Motor Deficits
Psych: Calm
Data Reviewed
-
Total Time Spent with Patient (in minutes): 56
Labs: Labs Reviewed by me (Hemoglobin 9.4/white count normal/creatinine remains at 1.8 from his baseline of 1.4/troponin not trending down to 0.99/initial proBNP 3600)
[2023-04-09] MEDS: HEPARIN 5000 UNITS SC ×2 (09:03→20:14)
[2023-04-09] MEDS: LIPITOR 40 MG PO (09:03)
[2023-04-09] MEDS: NSS 1000 IV (11:32)
[2023-04-09] MEDS: VITAMIN B-12 1000 MCG PO (11:32)
--- NOTE | 2023-04-09 14:56 | W.PN.CARDCBS ---
Today's Communication / Plan
-
Urgent temporary pacemaker
Permanent pacemaker in a.m.
Impression / Plan
-
Impression:
Transient complete heart block following TAVR
Left bundle branch block following TAVR
Atrial tachycardia/sinus tachycardia with at least second-degree AV block/A-V dissociation and junctional escape with left bundle, new since TAVR 04/06/2023
Florez PORTILLO 3 TAVR 04/06/23
Moderate CAD, 70% OM 2
CKD
Hypertension/hyperlipidemia
Obstructive sleep apnea
Smoker
JOSEPH, stable
Plan:
Symptomatic complete heart block following TAVR
Urgent temporary transvenous pacer
Permanent pacemaker in a.m.
Progress Note - Radiator Cleaner
Subjective
Date of Service: April 09, 2023:
Patient with 10 seconds of complete heart block and change in mentation witnessed by , with second episode
No medication allergies
Outpatient medicines: Aspirin 81 mg a day, atenolol 25 mg a day, atorvastatin 40 mg a day, lisinopril 10 mg daily
Current meds atenolol is on hold
PMH/PSH/FH/SH: Reviewed
ROS: Negative except as above
Hemoglobin is 9.4, BUN and creatinine are 41 and 1.8, creatinine is stable, had been 1.4 prior to procedure, troponin is 0.998, proBNP is 3610, peak troponin had been 1.2
Telemetry: 10 seconds of complete heart block
ECG today, sinus rhythm with high-grade AV block and ventricular/junctional escape rhythm and left bundle producing A-V dissociation
Objective
Labs:
04/09/23 03:45
04/09/23 03:45
Labs
Hgb 9.4 g/dL (13.0-18.0) L 04/09/23 03:45
Hct 27.5 % (39.0-52.0) L 04/09/23 03:45
Plt Count 138 10^3/uL (130-400) 04/09/23 03:45
Sodium 135 mmol/L (135-145) 04/09/23 03:45
Potassium 4.2 mmol/L (3.5-5.1) 04/09/23 03:45
BUN 41 mg/dl (9-20) H 04/09/23 03:45
Creatinine 1.8 mg/dL (0.7-1.3) H 04/09/23 03:45
Glucose 94 mg/dl (70-99) 04/09/23 03:45
Troponins
04/08/23 04/08/23 04/09/23
15:25 23:14 03:45
Troponin I 1.210 H* 1.050 H* 0.998 H*
Vital Signs and I&O:
Vital Signs
Temp Pulse Resp BP Pulse Ox
37.1 C 71 20 143/53 96
04/09/23 12:09 04/09/23 12:10 04/09/23 12:09 04/09/23 12:10 04/09/23 12:14
Vital Signs
Temp Pulse Resp BP Pulse Ox
37.1 C 71 20 143/53 96
04/09/23 12:09 04/09/23 12:10 04/09/23 12:09 04/09/23 12:10 04/09/23 12:14
Intake & Output
04/07/23 04/08/23 04/09/23 04/10/23
07:59 07:59 07:59 07:59
Intake Total 480 / 480
Balance 480 / 480
Physical Exam
Physical Exam
No distress at the moment
143/53, pulse 71, respiratory 20, afebrile, head neck exam unremarkable, lungs are clear, regular rate and rhythm, abdomen benign, extremities without edema
--- NOTE | 2023-04-09 15:46 | PTCARENOTE ---
Pt having 9-11 second episodes of complete heart block with symptoms of shaking witnessed by pts , pt unaware.. at pt's bedside. Pacer pads in place, IV fluids running. Report given and pt taken urgently to cardiac lab aide for
temporary pacemaker.
--- NOTE | 2023-04-09 15:55 | ITS.CL.PN ---
[employer] - Procedure Note
Procedure
Procedure Note:
Temporary Pacemaker Insertion
Date: 04/09/2023
Referring: Francoise Cronin M.D.
Indication: Complete heart block following TAVR.
Access:
8.5 [place] right internal jugular vein using a micropuncture kit under ultrasound guidance via a modified Seldinger technique.
Pacemaker Information:
Position: Right ventricular apex
Current (mA): 20
Rate (bpm): 60
Procedure:
The patient's right neck and inguinal areas were prepped and draped and standard sterile fashion. The right neck was anesthetized with 1% lidocaine. The internal jugular vein was punctured with a micropuncture needle under ultrasound guidance
using a modified Seldinger technique. Fluoroscopy confirmed satisfactory sheath position. The site was serially dilated and an 8.5 [place] Arrow sheath was inserted then sutured in place. A temporary pacemaker wire was covered with a sterile
cover, then inserted through the 8.5 [place] sheath. The tip of the pacemaker was advanced into the apex of the right ventricle. The pacemaker was turned on at 100 bpm at 20 mA. The current was serially decreased showing good capture at 1 mA. The
current was increased to 20 mA and the rate decreased to VVI 60 bpm. The sterile cover was secured and the sheath was covered with two opposing tegaderm dressings. A third tegaderm secured the body of the temporary pacemaker just below the right
clavicle. The patient was transferred to CVICU in stable condition.
Radiation (mGy): 16.59
Dose Area Product (Gy*cm2): 2.2764
Fluoroscopy Time (minutes): 0.5
Conclusions:
1. Successful placement of a temporoary pacemaker via right tunneled jugular approach without acute complications.
Recommendations:
1. Minimal manipulation of the right internal jugular wire to avoid potential dislodgement.
2. Discussion with EP regarding permanent device.
Copy to: Francoise Cronin M.D., Reid Davis M.D., Lion Leone M.D.
--- NOTE | 2023-04-09 16:34 | PTCARENOTE ---
received pt from [facility] into 2266 s/p temp pacing wire. Wire floated through right IJ sheath. Pacer settings 60/20. Patient is 100% V paced on tele. VSS, + peripheral pulses, denies CP or SOB. Patient and his were updated on plan of care and
questions encouraged.
[2023-04-09] MEDS: ASPIR LOW (ENTERIC COATED) 81 MG PO (18:03)
--- NOTE | 2023-04-09 20:00 | PTCARENOTE ---
[facility] recie[facility]. Walking rounds completed. Pt resting in bed. Temporary pacing wire floated through right IJ sheath. Pacer settings 60/20. AAOx4. Pt 100% v-paced on the monitor. HR 60. BP 158/58. +2 LE edema. Bilateral radial and DP
pulses palpable. Pt on RA. POX 96%. Lung sounds audible. Abdomen soft/nontender. Pt 1-person assist to stand and void clear/yellow urine. Right PIV CDI and flushes. No c/o pain at this time. Pt resting in bed. Call smith within reach. See workist for
full nursing assessment and interventions.
[2023-04-09] MEDS: ZYRTEC 10 MG PO (21:02)
[2023-04-10] VITALS (35 sets, daily range): BP systolic 137–207; BP diastolic 49–95; BMI 34.9
--- NOTE | 2023-04-10 00:32 | PTCARENOTE ---
Pt reassessed. Remains 100% v-paced on the monitor. Right IJ sheath w/ temporary pacing wire CDI. Pacer settings 60/20. HR 60. BP 144/50. RA. POX 97%. Pt assisted to stand by side of bed to void and then repositioned back into bed. No c/o pain at
this time. Call smith within reach.
--- NOTE | 2023-04-10 04:30 | PTCARENOTE ---
Pt reassessed. 100% V-paced on the monitor. HR 60. BP 155/60. RA. POX 96%. Pt assisted to stand to void clear/yellow urine w/o difficulty. Pt repositioned back in bed. Right IJ sheath w/ temporary wire CDI. No c/o pain at this time. Call smith within
reach.
--- NOTE | 2023-04-10 08:04 | PTCARENOTE ---
Patient received from nightshift nurse. Patient is alert and oriented x4. Denies pain/discomfort. 100% V-paced. Audible heart tones. HR 60. BP 164/58. Palpable pulses. +1 LE edema. RIJ cordis with KVO and transvenous wire maintained. PIV maintained.
RA. Oxygen saturation 96%. Upon auscultation, lung sounds clear throughout. Abdomen round, obese. Hypoactive BS. NPO for PPM placement today. Voids in urinal while sitting on the side of the bed. Per patient, passing gas and had a BM yesterday.
Bilateral groin puncture sites are approximated with ecchymosis R>L. RLE abrasion (present on admission) covered with dressing, which is clean, dry, intact. Will continue to monitor.
[2023-04-10] MEDS: HEPARIN 5000 UNITS SC ×2 (08:11→20:09)
[2023-04-10] MEDS: LIPITOR 40 MG PO (08:11)
--- NOTE | 2023-04-10 08:18 | W.PN.HOSP.TC ---
Today's Communication/Plan
-
Plan for permanent pacemaker today
Assessment / Plan
Assessment / Plan
Physical exam:
General: Acutely ill
HEENT: Normocephalic, Atraumatic and Moist Mucous Membranes. Right neck temporary pacer
Respiratory: Clear to Auscultation; Negative Wheezes, Rales or Rhonchi
Cardiac: Regular Rhythm and S1/S2
GI: Soft, Nontender and Nondistended
Musculoskeletal: No Clubbing, No Cyanosis and No Edema
Neuro: Awake, Alert and Oriented
Psych: Calm
A/P:
Symptomatic complete heart block following TAVR:
-Currently on temporary transvenous pacer
-Plan for permanent pacemaker today
-Continue cardiac monitoring
Essential hypertension:
-Withhold further beta-blockade
-Continue lisinopril
Prior history of bilateral carotid stenosis 80% on the right:
-Asymptomatic
Hyperlipidemia called
-Continue atorvastatin
CKD3/with acute kidney injury:
-Likely ATN due to hemodynamics
-Creatinine 1.8 today
-Creatinine 1.2 on 04/07
-Consider nephrology eval if not improving
-Maintain MAP of 65
Obstructive sleep apnea
Smoker
B12 deficiency by history
Anemia
DVT prophylaxis with heparin
Full CODE STATUS
Total time spent on today's encounter was 52 minutes which included time spent in counseling the patient/family regarding diagnosis and treatment plan as listed above, goals of care, and symptom management. Case was discussed with nursing staff,
specialists, and care coordinators/case management. All labs and imaging personally reviewed by me. Remainder the time spent in detailed review of previous records, lab data, imaging, and other medical provider documentation.
Anticipated Discharge: 24 - 48 hours
Subjective/Interval History
-
Date of Service: April 10, 2023
Patient denies chest pain or shortness of breath.
Objective Data
-
Vital Signs:
Vital Signs
Temp Pulse Resp BP Pulse Ox
98 F 60 15 179/64 96
04/10/23 04:00 04/10/23 07:00 04/10/23 07:00 04/10/23 07:00 04/10/23 07:59
I&O
04/09/23 04/10/23 04/11/23
06:59 06:59 06:59
Intake Total 580 / 580
Output Total 1150 / 1150
Balance -570 / -570
--- NOTE | 2023-04-10 09:13 | CM ---
Reviewed chart, Met with Mr Cronin to review discharge plans. He states prior to admission he resides with his spouse in a two story home with three steps to enter He states he has a full flight of steps to get to to bedroom. He has a full bathroom
on each floor. He states prior to admission he was independent with ambulation and adls. He states he has a CPAP Machine at home and no other DME in the home. He states his spouse will be home to assist in his care if needed. We reviewed a home
visit by the Cardiothoracic Transitional Care Nurse. He is agreeable to a home visit. Medical work-up in progress. The discharge plan is to return home with his spouse and a home visit by the Cardiothoracic Transitional Care Nurse when medically
stable.
--- NOTE | 2023-04-10 11:32 | PTCARENOTE ---
Vital signs stable. 100% V-paced with temporary transvenous wire (settings: VVI, HR 60, mA 20). RIJ cordis maintained with KVO and wire. HR 60. BP 165/66. RA. Oxygen saturation 95%. NPO status maintained, per tree tapping laborer charge nurse, patient will be
taken back later in the afternoon. Patient laying in bed, resting. Awaiting his PPM placement.
[2023-04-10] MEDS: VITAMIN B-12 1000 MCG PO (11:39)
--- NOTE | 2023-04-10 15:52 | PTCARENOTE ---
Report given to recyclable materials collector RN. Bedside report given as well. Monica, his , was updated at bedside. Awaiting to receive patient back from the recyclable materials collector.
--- NOTE | 2023-04-10 17:34 | ITS.CL.PACE ---
Cloth Weigher - Pacemaker Implant
Pacemaker Implant
Procedure Report:
PACEMAKER IMPLANT REPORT
Primary Care Provider: Dr. Reid Davis
Primary weather teacher: Dr Lion Leone
Date of Procedure: April 10, 2023
Procedure:
Implantation of dual-chamber permanent pacemaker utilizing the left bundle branch for conduction system pacing
Removal of right IJ temporary pacing wire
Indication/Diagnosis:
Non-reversible symptomatic bradycardia due to third degree atrioventricular block
HISTORY:
He underwent Florez PORTILLO 3 TAVR on April 06.� He had transient left bundle branch block postprocedure but otherwise an uncomplicated course and was discharged with a rhythmstar monitor. He subsequently developed symptomatic complete heart
block and required transvenous temporary pacing. He is referred today for implantation of dual-chamber permanent pacemaker.
After informed consent was obtained, 'time out' was called and confirmed, the patient was prepped and draped in a sterile fashion. Lidocaine with epi was used for local anesthesia. Central venous access was obtained via subclavian venipuncture. An
incision was made along the left chest and a pre-pectoral pocket was formed. Using a Seldinger technique and peel-away sheaths, the pacing leads were placed under fluoroscopic guidance.
Fluoroscopy was used to determine likely anatomic site for left bundle branch pacing. The Medtronic C315 sheath was used to deliver the Medtronic 3830 Selectsecure pacing lead with the helix exposed just exposed from the sheath tip during continuous
monitoring when pacemapping the septum during gentle clockwise rotation to obtain a paced QRS morphology of a W pattern in lead V1. Once the suspected optimal site was identified, lead deployment was performed with several rapid rotations as paced
QRS morphology was intermittently monitored until a paced QRS complex in lead V1 demonstrated development of an R wave (qR or rSR).
Unipolar pacing impedance dropped by approximately 100-200 ohms suggesting it had reached the left ventricular subendocardial.
Stable VEgm injury current is present throughout lead position and at end of case.
Final unipolar pacing impedance is 760 Ohms
Unipolar pacing threshold is stable at 0.75 V @ 0.4 ms.
QRS duration pacing from the temporary pacing wire is 136 ms
Final conduction system paced QRS complex duration is 102 ms
LVAT is 53 ms and peak V5 -> peak V1 timing is 49 ms
Right atrial lead was placed at the RAA.
Once testing (see below) showed adequate and stable function, the leads were secured using the suture sleeves. The pocket was liberally irrigated with antibiotic solution. The leads were connected to the generator header and the leads and
generator were placed within the pocket. Fluoroscopy confirmed stable lead position. The pocket was closed in the typical fashion.
Next the temporary pacing wire via the right internal jugular vein was removed under fluoroscopic guidance and there is no change in the fluoroscopic appearance of the newly placed permanent leads and no change in sensing and pacing parameters.
Fluoroscopy was used to guide lead placement.
IMPLANTS:
Medtronic [id number], SN: [id number], Left Pectoral
RA: Medtronic 5076-45, SN: [id number], RAA
RV: Medtronic 3830 , SN:[id number], Interventricular septum at LBB
DEVICE TESTING:
Sensing: RA 1 mV, RV 16 mV
Capture: RA 1 V@0.4ms, RV 0.75 V@0.4ms
Ohms: RA 400, RV 620 (bipolar)
FINAL PROGRAMMING
Evan Pacing: DDD 50-140 ppm
COMPLICATIONS:
None
CONCLUSIONS:
Successful implant of dual chamber permanent pacemaker utilizing Left Bundle Branch capture for conduction system pacing. Overall findings are most consistent with Left Ventricular Septal capture. Note that both LBB capture and Left Ventricular
Septal capture has been associated with improved left ventricular systolic function via cardiac resynchronization.
RECOMMENDATIONS:
1. Post-op care (tele, CXR, IV abx)
2. In-Office wound check in 5-7 days
Copy to:
Dr. Reid Davis
Dr Lion Leone
[2023-04-10] MEDS: ASPIR LOW (ENTERIC COATED) 81 MG PO (18:25)
--- NOTE | 2023-04-10 18:32 | PTCARENOTE ---
Patient received from rd lab technician. Patient is alert and oriented, says he feels a little 'fuzzy.' 100% V-paced. PPM is sensing and capturing appropriately. LUE immobilizer in place. LCW dressing has aquacell overtop with a pressure dressing, which is
clean, dry, intact. HR 110s-120s. EKG obtained. BP 166/85. RA. Oxygen saturation 95%. Dr. Love came in to speak with patient and his post procedure. He stated that the elevated HR s/p PPM placement is normal and will go down. He ordered
Metoprolol 25mg stat and Toprol XL 25mg stat - told RN to administer both at the same time, since one is short-acting and long-acting. Dr. Love wanted RN to change the CXR order from 1-view to portable. X-ray called to verify. Patient sitting
up in bed, comfortable. He is eating his dinner.
[2023-04-10] MEDS: TOPROL XL 25 MG PO (19:07)
[2023-04-10] MEDS: LOPRESSOR 25 MG PO (19:07)
--- NOTE | 2023-04-10 20:00 | PTCARENOTE ---
Pt received from buck RN. Walking rounds completed. Pt resting in bed. AAOx3. Pt 100% V-paced. HR 100s. PMM capturing and sensing appropriately. Left arm immobilizer in place. Left chest wall PMM incision site w/ Aquacel and pressure dressing
CDI. BP elevated - See APR. Pt on RA. POX 96%. Abdomen soft/nontender. Pt OOB to void in bathroom w/o difficulty. Left forearm PIV CDI and flushes. Right IJ sheath dressing CDI. No c/o pain at this time. Call smith within reach.
[2023-04-10] MEDS: ZYRTEC 10 MG PO (21:33)
[2023-04-10] MEDS: ANCEF 5 IV (21:33)
[2023-04-10] MEDS: LOPRESSOR 5 MG IV (21:47)
[2023-04-10] MEDS: TYLENOL 650 MG PO (22:39)
--- NOTE | 2023-04-10 23:53 | PTCARENOTE ---
Pt reassessed. Remains 100% v-paced on monitor. HR 80s-100s. BP 180s-200s/80-90. CTPA aware - see APR. RA. POX 96%. PMM dressing CDI. Left arm immobilizer maintained. Pt assisted OOB to chair and to the bathroom to void. Pt now resting in bed at
this time. Call smith within reach.
[2023-04-11] VITALS (13 sets, daily range): BP systolic 130–164; BP diastolic 61–86; BMI 34.8
[2023-04-11 04:25] LABS: Blood Urea Nitrogen 30 mg/dl (9-20); Calcium 8.6 mg/dl (8.4-10.2); Carbon Dioxide 27 mmol/L (22-30); Chloride 105 mmol/L (98-107); Estimated Creatinine Clearance 46 ml/min; Glucose 149 mg/dl (70-99); Potassium 5.2 mmol/L (3.5-5.1); Sodium 133 mmol/L (135-145); eGFR 50.18
[2023-04-11 04:26] LABS: % Basophils 0.1 % (0-2); % Immature Granulocytes 0.4 % (0-0.5); % Lymphocytes 7.5 % (20.5-51.1); % Monocytes 1.3 % (1.7-9.3); % Neutrophils 90.7 % (42.2-75.2); Absolute Lymphocytes 0.6 10^3/uL (1.2-3.4); Absolute Monocytes 0.1 10^3/uL (0.1-0.6); Absolute Neutrophils 6.9 10^3/uL (1.4-6.5); Hematocrit 33.5 % (39.0-52.0); Hemoglobin 11.4 g/dL (13.0-18.0); Mean Corpuscular Hgb 33.3 pg (27.0-31.0); Mean Platelet Volume 9.6 fL (7.4-10.4); Nucleated Red Blood Cells % 0 % (-); Platelet Count 152 10^3/uL (130-400); Red Blood Cell Count 3.42 10^6/uL (4.70-6.10); Red Cell Dist. Width 12.4 % (11.5-14.5); White Blood Cell Count 7.6 10^3/uL (4.8-10.8)
--- NOTE | 2023-04-11 04:30 | PTCARENOTE ---
No acute changes in assessment. Pt remains 100% v-paced on the monitor. HR 80s. BP 163/84. Pt placed on 2 L NC d/t POX dropping to 88-89% while asleep. Pt POX is currently 98-99% on 2 L NC. Pt assisted OOB to void in bathroom and then repositioned
back into bed. Labs drawn and sent. EKG obtained. L arm immobilizer remains in place. Call smith within reach. No c/o pain at this time.
[2023-04-11] MEDS: ANCEF 5 IV (05:58)
[2023-04-11] MEDS: HEPARIN 5000 UNITS SC (07:44)
[2023-04-11] MEDS: ZESTRIL 10 MG PO (07:44)
[2023-04-11] MEDS: TOPROL XL 25 MG PO ×2 (07:44→09:18)
[2023-04-11] MEDS: LIPITOR 40 MG PO (07:44)
--- NOTE | 2023-04-11 08:01 | PTCARENOTE ---
Received pt from operation shift supervisor RN; pt AAOx3 and resting comfortably in chair; 100% V-paced on monitor and VSS: Lungs diminished; positive bowel sounds; pt voiding clear yellow urine; + 1 lower extremity edema; palpable pulses throughout; left chest
dressing C/D/I, Right neck dressing C/D/I and right groin ecchymotic; see nursing documentation for further details.
--- NOTE | 2023-04-11 08:57 | W.PN.CARDCBS ---
Addendum entered and electronically signed by Pernell Bess MD 04/11/23 11:20:
I saw and examined the patient.
The COLLAR PADDER BLINDSTITCH or PA's note was reviewed and I agree with the note.
Comment: General: Well developed, well nourished in NAD.
Neck: Supple, no JVD, HJR, carotids +2 B/L, no bruits bilaterally.
Heart: Non displaced PMI, RRR, no murmurs, No S3, S4, no rubs.
Lungs: Scattered rhonchi
Left pacer dressings noted
Extremities: No clubbing, cyanosis or edema bilaterally.
Neuro: Grossly nonfocal, awake, alert and oriented x3.
Remains paced on telemetry. Increase Toprol to 50 mg for hypertension. Stable cardiology status for discharge to home. Discussed with nursing and primary service
Original Note:
Today's Communication / Plan
-
Stable following PPM implant 04/10/2023
Increase Toprol to 50 mg for HTN
Outpt cardiology follow up/incision check arranged
Impression / Plan
-
PCP: Keke Mathews
Strategy Specialist: Dr. Leone
Impression:
Presented 04/08/2023 with arrhythmia noted on outpatient monitor following TAVR
Transient complete heart block following TAVR
Left bundle branch block following TAVR
Atrial tachycardia/sinus tachycardia with at least second-degree AV block/A-V dissociation and junctional escape with left bundle, new since TAVR 04/06/2023
s/p DC Medtronic PPM utilizing Left Bundle Branch capture for conduction system pacing 04/11/2023
Severe
s/p Florez PORTILLO 3 TAVR 04/06/23
Moderate CAD, 70% OM 2
CKD
Hypertension/hyperlipidemia
Obstructive sleep apnea
Smoker
JOSEPH, stable
Plan:
-Presented 04/08/2023 with symptomatic complete heart block following TAVR on 04/06/2023
-Urgent temporary transvenous pacer performed 04/08/2023 now s/p DC Medtronic PPM utilizing Left Bundle Branch capture for conduction system pacing 04/10/2023.
-ECG 04/11/2023 stable showing A sensed and V paced rhythm
-Blood pressure has been elevated this admission. Increase Toprol to 50 mg daily. (Would not increase Lisinopril due to CKD, creat 1.4-1.8 and K+ 5.2)
-Outpatient cardiology follow has been arranged.
Progress Note - Strategy Specialist
Subjective
Date of Service: April 11, 2023
Patient seen and examined. Sitting up in chair and feels well. He has been able to ambulate around the unit without dizziness or lightheadedness.
Objective
Labs:
04/11/23 03:49
04/11/23 03:49
Labs
Hgb 11.4 g/dL (13.0-18.0) L D 04/11/23 03:49
Hct 33.5 % (39.0-52.0) L 04/11/23 03:49
Plt Count 152 10^3/uL (130-400) 04/11/23 03:49
Sodium 133 mmol/L (135-145) L 04/11/23 03:49
Potassium 5.2 mmol/L (3.5-5.1) H 04/11/23 03:49
BUN 30 mg/dl (9-20) H 04/11/23 03:49
Creatinine 1.4 mg/dL (0.7-1.3) H 04/11/23 03:49
Glucose 149 mg/dl (70-99) H 04/11/23 03:49
Troponins
04/08/23 04/08/23 04/09/23
15:25 23:14 03:45
Troponin I 1.210 H* 1.050 H* 0.998 H*
Vital Signs and I&O:
Vital Signs
Temp Pulse Resp BP Pulse Ox
97.7 F 90 20 162/75 97
04/11/23 07:47 04/11/23 08:00 04/11/23 07:47 04/11/23 07:39 04/11/23 08:00
Vital Signs
Temp Pulse Resp BP Pulse Ox
97.7 F 90 20 162/75 97
04/11/23 07:47 04/11/23 08:00 04/11/23 07:47 04/11/23 07:39 04/11/23 08:00
Intake & Output
04/09/23 04/10/23 04/11/23 04/12/23
06:59 06:59 06:59 06:59
Intake Total 580 / 580 60 / 60
Output Total 1150 / 1150 500 / 500
Balance -570 / -570 -440 / -440
Physical Exam
Physical Exam
GEN: No distress, awake, Ox3, sitting up in chair
HEENT: supple, anicteric, mmm
LUNGS: CTA, no wheezes/rales
CV: Reg, S1/S2, no murmur, rub or gallop
ABD: soft, BS+, NT/ND
EXT: No edema, clubbing, cyanosis; left arm in immobilizer
NEURO: Gross non-focal
SKIN: No rash, warm, dry, pink
--- NOTE | 2023-04-11 09:32 | W.PN.HOSP.TC ---
Today's Communication/Plan
-
Discharge planning today
Assessment / Plan
Assessment / Plan
Physical exam:
General: Acutely ill
HEENT: Normocephalic, Atraumatic and Moist Mucous Membranes. Right neck temporary pacer
Respiratory: Clear to Auscultation; Negative Wheezes, Rales or Rhonchi
Cardiac: Pacemaker in place with postop findings and incision C/D/I. Regular Rhythm and S1/S2
GI: Soft, Nontender and Nondistended
Musculoskeletal: No Clubbing, No Cyanosis and No Edema
Neuro: Awake, Alert and Oriented
Psych: Calm
A/P:
Symptomatic complete heart block following TAVR:
-Currently on temporary transvenous pacer
-Plan for permanent pacemaker today
-Continue cardiac monitoring
Non-OK troponin elevation:
-Cardiology on board
Essential hypertension:
-Resume beta-blockers and increased
-Continue lisinopril
Prior history of bilateral carotid stenosis 80% on the right:
-Asymptomatic
Hyperlipidemia called
-Continue atorvastatin
CKD3/with acute kidney injury:
-Likely ATN due to hemodynamics
-Creatinine 1.8-->1.4 today
-Creatinine 1.2 on 04/07
-Maintain MAP of 65
Obstructive sleep apnea
Smoker
B12 deficiency by history
Anemia
DVT prophylaxis with heparin
Full CODE STATUS
Anticipated Discharge: Today
Subjective/Interval History
-
Date of Service: April 11, 2023
No chest pain or shortness of breath. Ambulating in room to hallway without problems.
Objective Data
-
Labs:
Laboratory Results
04/11/23
03:49
WBC 7.6
Hgb 11.4 L D
Hct 33.5 L
Plt Count 152
Sodium 133 L
Potassium 5.2 H
Chloride 105
Carbon Dioxide 27
BUN 30 H
Creatinine 1.4 H
Glucose 149 H
Calcium 8.6
Vital Signs:
Vital Signs
Temp Pulse Resp BP Pulse Ox
97.7 F 90 20 162/75 98
04/11/23 07:47 04/11/23 08:00 04/11/23 07:47 04/11/23 07:39 04/11/23 09:24
I&O
04/10/23 04/11/23 04/12/23
06:59 06:59 06:59
Intake Total 580 / 580 60 / 60
Output Total 1150 / 1150 500 / 500
Balance -570 / -570 -440 / -440
--- NOTE | 2023-04-11 10:34 | CM ---
Reviewed chart. Met with Mr. Cronin to review discharge plans. He states he is feeling well and maybe able to go home. We reviewed a home visit by the Cardiothoracic Transitional Care Nurse. He states she already has called today. Prior to
admission he resides with his spouse in a two story home with three steps to enter. He has to go up a full flight of steps to get to bedroom. He has a full bathroom on each level. He has been ambulating in the room. He has a CPAP Machine at home
and no other DME in the home. He has a prescription plan and uses [facility]. Medical work-up in progress. The discharge plan is to return home with his spouse and a home visit by the Cardiothoracic Transitional Care Nurse when medically
stable.
--- NOTE | 2023-04-11 11:48 | PN.CDI ---
CDI
- -
CDI:
Physician Documentation Request
Admit Date: 04/08/23 17:[address] Lyons,
Clinical Indicators:
Patient admitted with complete heart block, s/p permanent pacemaker 04/10.
s/p TAVR 04/06
04/09 H & P, '-Abnormal troponin/will trend'
Troponin trend:
04/08/23 04/08/23 04/09/23
15:25 23:14 03:45
Troponin I 1.210 H* 1.050 H* 0.998 H*
Based on the above, could you clarify the etiology of the troponin elevation:
Non NE troponin elevation
Abnormal lab value, clinically insignificant
Other, please specify
Unable to determine
Use of terms such as suspected, likely, concern for, or probable (associated with a specific diagnosis that is being evaluated, monitored, or treated as if it exists) are acceptable and can be coded in the inpatient setting, when documented at the
time of discharge.
Thank you,
GENI Carney RN
CDI Specialist
available via tiger text
Please use your independent medical judgment in providing your response.
[2023-04-11] MEDS: VITAMIN B-12 1000 MCG PO (11:56)
--- NOTE | 2023-04-11 12:15 | PTCARENOTE ---
pt received from previous RN, agree w/ previous assessment. VSS. ambulating in room. no c/o pain. voiding in bathroom. LUE sling in place, LCW pressure dressing.
--- NOTE | 2023-04-11 13:15 | W.DCSUMMARY ---
Discharge Summary
Discharge Data
Date of Admission: 04/08/23
Date of Discharge: 04/11/23
-
Pending Results: No
Hospital Course
Patient 83 years old female with history aortic stenosis status post recent TAVR, nonobstructive CAD, transient left bundle branch block postprocedure, was recently discharged from his postprocedure of aortic valve and he had a transmission to
cardiology that he had an event of atrial tachycardia or flutter with variable block and a ventricular response approximately of 60 so he was sent over to the hospital for further evaluation. He was kept on cardiac monitoring, his atenolol was
held, and EP was asked to see him for further evaluation. Patient course complicated with symptomatic complete heart block so urgent temporary transvenous pacer had to be placed on 04/09. Patient underwent permanent pacemaker on 04/10. Course also
complicated with acute kidney injury with mild hyperkalemia most likely related to acute tubular necrosis due to hemodynamics of AV conduction abnormalities requiring pacemaker. Her creatinine has improved after pacemaker has been placed. Postop he
had some hypertension and cardiology recommend to increase beta-blockers and continue KENNA inhibitor. Cardiology cleared him for discharge today. He will have close follow-up of BMP as outpatient to follow-up renal function and electrolytes. He
will be discharged in relatively stable condition today.
Discharge duration: 35 minutes
Discharge Plan
-
Patient Disposition: Home (Routine Discharge)
Discharge Diagnosis/Procedures: Complete heart block status post pacemaker implant. Acute kidney injury.
Diet: Low Cholesterol
Activity: Other activity
Additional Activity: As instructed by cardiology.
Driving Restrictions: No driving for 1 week
Blood Work: Please PCP to order CBC, BMP within 1 week.
Stand Alone Forms: DC Inst - Implanted Device
Referrals:
[facility] [Provider Group] - 04/17/23 2:20 pm (Post device inicision check appointment)
CT Transitional Care Nurse [Outside] - in one to two days
(
The Cardiothoracic Transitional Care Nurse will call you to set up a visit in 1-2 days.)
Reid Davis MD [Family Provider] - in less than 1 week (Please make an appointment in four to six weeks. )
Denise Nix PA-C [Specified Professional Personl] - 05/03/23 9:40 am (Cardiology followup appointment)
Prescriptions:
New
acetaminophen 325 mg Tablet
650 mg PO Q4HPRN PRN (Reason: mild pain/STOVER/temp> 100.4F) Qty: 20 0RF
metoprolol succinate 50 mg Tablet Extended Release 24 Hr
50 mg PO DAILY 30 Days Qty: 30 0RF
Continued
cetirizine 10 MG tablet
10 mg PO HS
aspirin 81 MG tablet,delayed release (DR/EC)
81 mg PO QPM
fluticasone propionate 1 SPRAY spray,suspension
2 spray intranasal DAILY
lisinopril 10 MG tablet
10 mg PO DAILY
atorvastatin 40 mg Tablet
40 mg PO DAILY
cyanocobalamin (vitamin B-12) 1,000 mcg Tablet
1,000 mcg PO NOON
Discontinued
atenolol 25 MG tablet
25 mg PO DAILY
Discharge Orders:
Discharge Patient (As Directed); Ordered 04/11/23
Ordered By: King Lyons
Discharge Date and Time
Discharge Date/Time: 04/11/23 14:52
--- NOTE | 2023-04-11 14:24 | PTCARENOTE ---
pt discharged home, JAYSON Henson at bedside to remove LCW pressure dressing. discharge instructions reviewed w/ patient, and son. home meds reviewed. IV and tele dc'd. questions answered. pt left w/ all belongings via wheelchair.
== END 2023-04-11 14:52 | disposition home or self-care (01) | DRG 242 ==
LOC: CVICU 17:17
PROVIDERS: Internal Medicine Cardiovascular Disease; Internal Medicine Interventional Cardiology; ADMITTING PHYSICIAN Internal Medicine; ATTENDING PHYSICIAN Hospitalist; CONSULT PHYSICIAN Internal Medicine Cardiovascular Disease; EMERGENCY PHYSICIAN Emergency Medicine; FAMILY PHYSICIAN Family Medicine
PROC: 5A1223Z Performance of Cardiac Pacing, Continuous (ICD-10-PCS; 2023-04-09)
PROC: 02HK3JZ Insertion of Pacemaker Lead into Right Ventricle, Percutaneous Approach (ICD-10-PCS; 2023-04-10)
PROC: 02H63JZ Insertion of Pacemaker Lead into Right Atrium, Percutaneous Approach (ICD-10-PCS; 2023-04-10)
PROC: 0JH606Z Insertion of Pacemaker, Dual Chamber into Chest Subcutaneous Tissue and Fascia, Open Approach (ICD-10-PCS; 2023-04-10)
DX: I44.2 Atrioventricular block, complete (principal); N17.0 Acute kidney failure with tubular necrosis; I5A Non-ischemic myocardial injury (non-traumatic); I47.19 Other supraventricular tachycardia; I45.89 Other specified conduction disorders; I25.10 Atherosclerotic heart disease of native coronary artery without angina pectoris; G47.33 Obstructive sleep apnea (adult) (pediatric); I12.9 Hypertensive chronic kidney disease with stage 1 through stage 4 chronic kidney disease, or unspecified chronic kidney disease; N18.30 Chronic kidney disease, stage 3 unspecified; F17.210 Nicotine dependence, cigarettes, uncomplicated; I65.23 Occlusion and stenosis of bilateral carotid arteries; E78.00 Pure hypercholesterolemia, unspecified; E53.8 Deficiency of other specified B group vitamins; Z95.2 Presence of prosthetic heart valve
CPT/HCPCS: 33208; 33210; 71045; 80048; 80053; 83735; 83880; 84443; 84484; 85025; 85027; 93005; 99285; 99406; C1769; C1785; C1887; C1892; C1898; Q9967

== ENCOUNTER → 2023-05-09 09:47 | Outpatient (REF) | payer OTHER, SELFPAY | LOC: DHCBS MAIN 09:47 | PROVIDERS: ATTENDING PHYSICIAN Physician Assistant; FAMILY PHYSICIAN Family Medicine | DX: I35.0 Nonrheumatic aortic (valve) stenosis (principal); Z95.2 Presence of prosthetic heart valve | CPT/HCPCS: 93306 ==

== ENCOUNTER 2023-05-24 11:22 | Outpatient (RCR) | payer OTHER, SELFPAY | END 2023-05-24 23:59 | disposition home or self-care (01) | LOC: CRHB 11:22 | PROVIDERS: ATTENDING PHYSICIAN Internal Medicine Interventional Cardiology | DX: Z95.4 Presence of other heart-valve replacement (principal) | CPT/HCPCS: G0422; G0423 ==

== ENCOUNTER 2023-05-26 08:39 | Emergency (ER) | payer OTHER, SELFPAY ==
[2023-05-26 08:52] VITALS: BP 184/85
[2023-05-26 10:24] VITALS: BMI 34.1
--- NOTE | 2023-05-26 10:31 | ED.GENMED ---
History of Present Illness
General
Chief Complaint: Blood Pressure Problem
Source: patient
Exam Limitations: none
Time Seen by Provider: 05/26/23 10:12
Nursing documentation reviewed up to this point in time: agreed with
Travel History
Have you had any contact with someone who has COVID-19?: No
Do you have any symptoms of coronavirus? Fever > 100 degrees, chills, cough, shortness of breath, sore throat, loss of taste or smell, muscle aches, or headache?: No
History of Present Illness
History of Present Illness:
83-year-old male presents emergency department due to high blood pressure since yesterday. He states he feels foggy. He denies any chest pain or shortness of breath. He had a TAVR and pacemaker placed in March.
Past History
Past History
ED Past Medical History: HTN
Social History
Tobacco: Smoker
Personal:
Living: with family
Employment: Employed
Review of Systems
Review of Systems
Allergies reviewed?: Yes
All Other Systems: Not applicable
Constitutional: Reports no symptoms
EENT: Reports no symptoms
Respiratory: Reports no symptoms
Cardiac: Reports no symptoms; Denies chest pain or syncope
ABD/GI: Reports no symptoms
: Reports no symptoms
Musculoskeletal: Reports no symptoms
Skin: Reports no symptoms
Neurological: Reports no symptoms
Endocrine: Reports no symptoms
Hematologic/Lymphatic: Reports no symptoms
Psychiatric: Reports no symptoms
Phy Exam
Physical Exam
Physical Exam:
Physical Exam
General: Blood pressure 184/85
Neck: supple. no meningeal signs. normal posterior pharynx
Heart: s1/s2 regular rate and rhythm, no murmur. equal radial
pulses.
HEENT: Pupils equal round reactive to light, EOMI
Lungs: no acute respiratory distress. clear bilaterally
Abdomen: normal bowel sounds. not tender. no CVAT
Neuro: alert and oriented. no focal neurological deficits cranial nerves II through XII intact
Skin: no rash
Psychiatric: well kept. interactive and cooperative
Extremities: no edema. no calf tenderness. negative homans. good distal pulses
Course
Orders/Labs/Results
Orders:
Orders
05/26/23 08:57
Electrocardiogram (*1) Urgent
Reason for Study: Fatigue / Weakness
05/26/23 08:58
EKG- Treatment ONCE
05/26/23 10:29
Cardiac Monitoring- Treatment ONCE
IV Insert/Care/Rem.- Treatment PRN
05/26/23 11:21
Complete Blood Count/With Diff Urgent
Comprehensive Metabolic Panel Urgent
NT-proBNP Urgent
Troponin I Urgent
Abnormal Lab Results
05/26/23
11:21
RBC 3.44 L 10^6/uL
(4.70-6.10)
Hgb 11.3 L g/dL
(13.0-18.0)
Hct 34.4 L %
(39.0-52.0)
MCV 100.0 H fL
(80.0-94.0)
MCH 32.8 H pg
(27.0-31.0)
MCHC 32.8 L g/dL
(33.0-37.0)
Lymphocytes % 19.1 L %
(20.5-51.1)
05/26/23 11:21
05/26/23 11:21
Vital Signs
Initial and Last Documented VS:
Initial Vital Signs
Temp Pulse Resp BP Pulse Ox
98.2 F 80 16 184/85 98
05/26/23 08:52 05/26/23 08:52 05/26/23 08:52 05/26/23 08:52 05/26/23 08:52
Last Documented Vital Signs
Temp Pulse Resp BP Pulse Ox
98.2 F 80 16 184/85 98
05/26/23 08:52 05/26/23 08:52 05/26/23 08:52 05/26/23 08:52 05/26/23 08:52
MDM/Problems Addressed
Differential Diagnosis Includes:
Dysrhythmia, hypertensive emergency
MDM/Problems Addressed:
83-year-old male with hypertension, no signs of weakness, no dysrhythmia. Pacemaker functioning appropriately. Stable for discharge.
Chronic conditions affecting care: HTN, Cardiomyopathy and Arrhythmia
Acute Exacerbation and/or Progression of Chronic Illness: HTN, Cardiomyopathy and Arrhythmia
*Radiology
Radiology exam reviewed: radiology read reviewed
*Pulse Oximetry
Patient hypoxic: no
*EKG
Interpreted by ED Provider?: Yes
EKG Intrepretation Date: 05/26/23
EKG Intrepretation Time: 09:03
Interpretation: abnormal
Comparison EKG: changes noted
Heart Rate: 62
Rate: normal
Rhythm: av sequential
Delmar: normal axis
Interval: normal interval
QRS Pattern: normal QRS
Ischemia: no ischemia
*Tip Scourer Interpretation
Rate: normal
Interpretation: abnormal
Heart Rate: 62
Rhythm: av sequential
*Critical Care Note
Total Time (30-74mins, 75-104mins- exclusive of procedures): Not Applicable
Data Reviewed
Review of Other/Old Records Reveals: Operative Reports
Source: records (Pacemaker placed 04/10/[address] Love)
Patient Management
Social determinants of health affecting care: Living situation
Discussion with other providers: Other ([employer] rep stating 1 episode of nonsustained ventricular tachycardia on 05/07/2023)
Escalation/DeEscalation of care consider admission/obs:
Admit not indicated
ED Attending Note
-
Portions of this chart may have been created with voice recognition software.� Occasional wrong word or��sound alike� substitutions may have occurred due to the inherent limitations of voice recognition software.
Discharge Plan
Departure
Patient Disposition: Home (Routine Discharge)
Date of Disposition: 05/26/23
Time of Disposition: 13:15
Patient with high blood pressure during this ER visit?: Yes
Condition: Good
Discharge Problem:
Hypertension
Instructions: High Blood Pressure (DC)
Prescriptions:
No Action
cetirizine 10 MG tablet
10 mg PO HS
aspirin 81 MG tablet,delayed release (DR/EC)
81 mg PO QPM
fluticasone propionate 1 SPRAY spray,suspension
2 spray intranasal DAILY
lisinopril 10 MG tablet
10 mg PO DAILY
atorvastatin 40 mg Tablet
40 mg PO DAILY
cyanocobalamin (vitamin B-12) 1,000 mcg Tablet
1,000 mcg PO NOON
acetaminophen 325 mg Tablet
650 mg PO Q4HPRN PRN (Reason: mild pain/STOVER/temp> 100.4F) Qty: 20 0RF
metoprolol succinate 50 mg Tablet Extended Release 24 Hr
50 mg PO DAILY 30 Days Qty: 30 0RF
Referrals:
Reid Davis MD [Family Provider] - Call in 1-3 days for appt
Interventions
Interventions:
*Risk Screen - Suicide Last Done: 05/26/23 10:24
*General Assessment Last Done: 05/26/23 10:24
*Neglect/Abuse Screening Last Done: 05/26/23 10:24
ED- Fall Risk Assessment Last Done: 05/26/23 10:24
*ED COVID-19 Vaccine History Last Done: 05/26/23 10:24
ED- Cardiac Assessment Last Done: 05/26/23 10:24
ED- Neurological Assessment Last Done: 05/26/23 10:24
ED- Pulmonary Assessment Last Done: 05/26/23 10:24
Discharge Date and Time
Print Language: DANISH
[2023-05-26 11:14] VITALS: BP 166/63
[2023-05-26 11:29] LABS: % Basophils 0.7 % (0-2); % Eosinophils 3.9 % (0-6); % Immature Granulocytes 0.4 % (0-0.5); % Lymphocytes 19.1 % (20.5-51.1); % Neutrophils 68.9 % (42.2-75.2); Absolute Basophils 0.1 10^3/uL (0-0.2); Absolute Eosinophils 0.3 10^3/uL (0-0.7); Absolute Lymphocytes 1.6 10^3/uL (1.2-3.4); Absolute Monocytes 0.6 10^3/uL (0.1-0.6); Absolute Neutrophils 5.7 10^3/uL (1.4-6.5); Hematocrit 34.4 % (39.0-52.0); Hemoglobin 11.3 g/dL (13.0-18.0); Mean Corp Hgb Conc. 32.8 g/dL (33.0-37.0); Mean Corpuscular Hgb 32.8 pg (27.0-31.0); Mean Platelet Volume 9.1 fL (7.4-10.4); Nucleated Red Blood Cells % 0 % (-); Platelet Count 170 10^3/uL (130-400); Red Blood Cell Count 3.44 10^6/uL (4.70-6.10); Red Cell Dist. Width 12.5 % (11.5-14.5); White Blood Cell Count 8.3 10^3/uL (4.8-10.8)
[2023-05-26 11:41] LABS: ALT (SGPT) 19 U/L (0-50); AST (SGOT) 28 U/L (17-59); Albumin 3.8 g/dl (3.5-5.0); Alkaline Phosphatase 88 U/L (38-126); Blood Urea Nitrogen 20 mg/dl (9-20); Calcium 9.1 mg/dl (8.4-10.2); Carbon Dioxide 27 mmol/L (22-30); Chloride 106 mmol/L (98-107); Estimated Creatinine Clearance 60 ml/min; Glucose 97 mg/dl (70-99); Potassium 4.5 mmol/L (3.5-5.1); Sodium 136 mmol/L (135-145); Total Protein 6.4 g/dl (6.3-8.2); eGFR > 60.00
[2023-05-26 11:52] LABS: Troponin I < 0.012 ng/ml
[2023-05-26 12:00] VITALS: BP 157/67
[2023-05-26 12:40] LABS: NT-proBNP 928 pg/ml
[2023-05-26 13:00] VITALS: BP 148/70
== END 2023-05-26 13:52 | disposition home or self-care (01) ==
LOC: EMR 08:39
PROVIDERS: EMERGENCY PHYSICIAN Emergency Medicine; FAMILY PHYSICIAN Family Medicine
DX: I47.20 Ventricular tachycardia, unspecified (principal); R42 Dizziness and giddiness; I10 Essential (primary) hypertension; G47.30 Sleep apnea, unspecified; I35.0 Nonrheumatic aortic (valve) stenosis; E78.5 Hyperlipidemia, unspecified; I45.9 Conduction disorder, unspecified; F17.210 Nicotine dependence, cigarettes, uncomplicated; Z79.82 Long term (current) use of aspirin; Z95.2 Presence of prosthetic heart valve; Z95.0 Presence of cardiac pacemaker; Z85.828 Personal history of other malignant neoplasm of skin; Z91.048 Other nonmedicinal substance allergy status
CPT/HCPCS: 99283; 80053; 83880; 84484; 85025; 93005

== ENCOUNTER 2023-06-26 09:58 | Outpatient (RCR) | payer OTHER, SELFPAY | END 2023-06-26 23:59 | disposition home or self-care (01) | LOC: CRHB 09:58 | PROVIDERS: ATTENDING PHYSICIAN Internal Medicine Interventional Cardiology | DX: Z95.2 Presence of prosthetic heart valve (principal) | CPT/HCPCS: G0422; G0423 ==

== ENCOUNTER 2023-07-28 11:37 | Outpatient (RCR) | payer OTHER, SELFPAY | END 2023-07-28 23:59 | disposition home or self-care (01) | LOC: CRHB 11:37 | PROVIDERS: ATTENDING PHYSICIAN Internal Medicine Cardiovascular Disease; FAMILY PHYSICIAN Family Medicine | DX: I25.10 Atherosclerotic heart disease of native coronary artery without angina pectoris (principal); Z95.2 Presence of prosthetic heart valve; Z95.0 Presence of cardiac pacemaker | CPT/HCPCS: G0422; G0423 ==

== ENCOUNTER 2023-08-14 09:45 | Outpatient (RCR) | payer OTHER, SELFPAY | END 2023-08-14 23:59 | disposition home or self-care (01) | LOC: CRHB 09:45 | PROVIDERS: ATTENDING PHYSICIAN Internal Medicine Interventional Cardiology; FAMILY PHYSICIAN Family Medicine | DX: Z95.3 Presence of xenogenic heart valve (principal); Z95.0 Presence of cardiac pacemaker; I25.10 Atherosclerotic heart disease of native coronary artery without angina pectoris | CPT/HCPCS: G0422; G0423 ==

== ENCOUNTER → 2023-11-16 09:27 | Outpatient (REF) | payer OTHER, SELFPAY | LOC: RCS 09:27 | PROVIDERS: ATTENDING PHYSICIAN Internal Medicine Interventional Cardiology; FAMILY PHYSICIAN Family Medicine | DX: I35.0 Nonrheumatic aortic (valve) stenosis (principal); Z95.2 Presence of prosthetic heart valve | CPT/HCPCS: 93306 ==

== ENCOUNTER → 2024-02-19 07:03 | Outpatient (REF) | payer OTHER, SELFPAY | LOC: RAD 07:03 | PROVIDERS: ATTENDING PHYSICIAN Internal Medicine Interventional Cardiology; FAMILY PHYSICIAN Family Medicine | DX: I65.23 Occlusion and stenosis of bilateral carotid arteries (principal) | CPT/HCPCS: 93880 ==

== ENCOUNTER → 2024-03-26 10:22 | Outpatient (REF) | payer OTHER, SELFPAY | LOC: RAD 10:22 | PROVIDERS: ATTENDING PHYSICIAN Surgery Vascular Surgery; FAMILY PHYSICIAN Family Medicine | DX: I65.23 Occlusion and stenosis of bilateral carotid arteries (principal) | CPT/HCPCS: 70496; 70498; Q9967 ==

== ENCOUNTER 2024-05-14 05:55 | Inpatient (IN) | payer OTHER, SELFPAY ==
[2024-05-08 09:04] VITALS: BMI 36.0
[2024-05-08 09:28] LABS: % Basophils 0.9 % (0-2); % Eosinophils 9.6 % (0-6); % Immature Granulocytes 0.2 % (0-0.5); % Lymphocytes 23.6 % (20.5-51.1); % Monocytes 9.8 % (1.7-9.3); % Neutrophils 55.9 % (42.2-75.2); Absolute Basophils 0.1 10^3/uL (0-0.2); Absolute Eosinophils 0.8 10^3/uL (0-0.7); Absolute Lymphocytes 1.9 10^3/uL (1.2-3.4); Absolute Monocytes 0.8 10^3/uL (0.1-0.6); Absolute Neutrophils 4.5 10^3/uL (1.4-6.5); Hematocrit 35.4 % (39.0-52.0); Hemoglobin 11.7 g/dL (13.0-18.0); Mean Corp Hgb Conc. 33.1 g/dL (33.0-37.0); Mean Corpuscular Hgb 33.6 pg (27.0-31.0); Mean Corpuscular Volume 101.7 fL (80.0-94.0); Nucleated Red Blood Cells % 0 % (-); Red Blood Cell Count 3.48 10^6/uL (4.70-6.10); Red Cell Dist. Width 13.1 % (11.5-14.5)
[2024-05-08 09:35] LABS: APTT 28.1 Sec (23.4-35.0); INR 0.98; PT 13.5 Sec (11.4-14.6)
[2024-05-08 10:28] LABS: Blood Urea Nitrogen 28 mg/dl (9-20); Calcium 9.3 mg/dl (8.4-10.2); Carbon Dioxide 28 mmol/L (22-30); Chloride 101 mmol/L (98-107); Estimated Creatinine Clearance 48 ml/min; Glucose 98 mg/dl (70-99); Sodium 138 mmol/L (135-145); eGFR 54.51
--- NOTE | 2024-05-09 08:49 | PTCARENOTE ---
Patients 05/08 GFR- 54.51- Marilyn and Ema @ Dr. Mari office notified
[2024-05-14] VITALS (22 sets, daily range): BP systolic 107–156; BP diastolic 46–73
[2024-05-14] MEDS: BACTROBAN NASAL 1 GRAM NASAL (06:47)
[2024-05-14] MEDS: NSS 500 IV (06:48)
[2024-05-14] MEDS: PERIDEX 0.12% ORAL RINSE 15 ML PO (06:48)
--- NOTE | 2024-05-14 07:05 | HP.FOC2 ---
Focused History & Physical
Chief Complaint
HPI:
Chief Complaint: Asymptomatic left carotid stenosis
HPI / Indication for Planned Procedure: This is an 84-year-old male with significant past medical history for hypertension, carotid stenosis, hyperlipidemia, aortic valve stenosis, left bundle branch block, heart block, chronic kidney disease stage
III, sleep apnea, and coronary artery disease who presents to [facility] for scheduled left carotid endarterectomy with Dr. Perez Pérez III. Patient denies recent illness, trauma, hospitalization, fever, cough, chills, nausea, vomiting,
chest pain, and dyspnea on exertion. He reports he is at his baseline health with no recent medication changes.
Relevant Past Medical History: Coronary Artery Disease, Hypertension, Sleep Apnea and Other (Aortic stenosis, heart block, permanent pacemaker, chronic kidney disease)
Relevant Social History: Tobacco Use (Current smoker)
Relevant Family History: Positive for (Father stroke)
Relevant Past Surgical History: Positive for (TAVR, permanent pacemaker, hernia)
Review of Systems
Review of Pertinent Systems: All Systems Negative
Medication
See Medication form for detailed medications: Yes
Medication List (including Herbals & OTC):
aspirin 81 mg tablet,delayed release 81 mg PO QPM Blood Clot Prevention/Tx 03/30/18
cetirizine 10 mg tablet 10 mg PO HS Allergies 03/30/18
fluticasone propionate 50 mcg/actuation nasal spray,suspension 2 spray intranasal DAILY Allergies 03/30/18
lisinopril 10 mg tablet 20 mg PO DAILY Blood Pressure 08/18/21
atorvastatin 40 mg tablet 40 mg PO DAILY High Cholesterol 02/23/23
cyanocobalamin (vitamin B-12) 1,000 mcg tablet 1,000 mcg PO NOON Supplement 04/08/23
metoprolol succinate 50 mg tablet,extended release 24 hr 50 mg PO DAILY 30 days #30 tabs 04/11/23
amlodipine 2.5 mg tablet 2.5 mg PO DAILY 05/06/24
Medications Reviewed: Yes
Allergies and Reactions
Patient has Allergies: Yes
Noted Allergies and Reactions:
Allergy/AdvReac Type Severity Reaction Status Date / Time
pollen extracts Allergy SEASONAL-NASAL Verified 05/06/24 13:00
SYMPTOMS
Pertinent Physical Exam
All Other Systems: Negative
Head/Neck: Normal
Lungs: Normal (Bilateral lungs CTA)
Heart: Normal (RRR, S1-S2)
Abdomen: Normal (Nontender, nondistended, rotund)
Extremities: Normal
Neurological: Normal
Diagnosis / Assessment
Assessment: 84-year-old male with left carotid asymptomatic stenosis
Plan / Procedure
Will proceed with scheduled left carotid endarterectomy with Dr. Perez Pérez III
Anesthesia/Sedation to be done by Anesthesia Provider: Yes
--- NOTE | 2024-05-14 07:13 | W.SUR.PREOP ---
Pre-Operative Surgical Note
-
I have examined this patient prior to the performance of the scheduled procedure.
The patient's condition is unchanged from the time of the current History and
Physical and the patient is able to undergo the scheduled procedure.
[2024-05-14 08:45] LABS: ACT-LR - POC 347 Seconds (116-155)
[2024-05-14 09:33] LABS: ACT-LR - POC 260 Seconds (116-155)
--- NOTE | 2024-05-14 10:04 | W.SUR.POST ---
Surgical Immediate Post Op
Note
Pre Op Diagnosis: left carotid stenosis
Post Op Diagnosis: left carotid stenosis
Procedure Performed: left carotid endarterectomy with bovine patch angioplasty
Primary Surgeon: Perez Pérez
Secondary Surgeons: Devonte Atwood
Anesthesia: see anesthesia flowsheet
Estimated Blood Loss: 20cc
Fluids: see anesthesia flowsheet
Drains/Shunts: none
Specimens/Cultures: none
Doppler/Duplex/Angio (Y/N): y, doppler
Complications: none
Operative Findings: Left carotid endarterectomy with bovine patch angioplasty. Bulky plaque at carotid bulb.
--- NOTE | 2024-05-14 10:15 | OR.RPT ---
Operative Report
Operative Report
Date of Operation: 05/14/2024
Pre Op Diagnosis: High-grade left carotid artery stenosis
Post Op Diagnosis: High-grade left carotid artery stenosis
Procedure: LEFT carotid endarterectomy with patch angioplasty using bovine pericardium
Surgeon: Perez Pérez III, MD
Technology Coach: Devonte Atwood MD, PGY4
Anesthesia: General
Complications: None
History and Indications for Procedure: 84-year-old male with high-grade calcified stenosis of the left internal carotid artery.
Procedure in Detail: Ciro Cronin was correctly identified and placed supine on the operating table. After adequate induction of anesthesia the left neck was positioned, prepped and draped in the usual sterile fashion. Preoperative antibiotics were
administered. A timeout procedure was performed with the nursing and anesthesia staff confirming the patients identity as well as the nature and laterality of the procedure.
The carotid bifurcation was marked with ultrasound at the beginning of the case. The incision was planned accordingly. An incision was made along the anterior border of the left sternocleidomastoid muscle. Electrocautery was used to divide the
subcutaneous tissue and platysma. The carotid sheath was entered with sharp dissection. The internal jugular vein was retracted laterally. The vagus nerve was identified and protected throughout the case. The common carotid artery was identified at
the base of this incision and carefully encircled with a vessel loop. The patient was systemically heparinized. The dissection was continued distally towards the carotid bifurcation. The facial vein was skeletonized, ligated and divided between ties
and clips. The proximal external carotid artery was encircled with a vessel loop. The distal internal carotid artery was encircled with a vessel loop at a soft spot on the artery beyond the plaque. The hypoglossal nerve was identified and protected.
The internal vessel loop was secured followed by the common and external. An arteriotomy was made on the distal common carotid artery with an 11-blade. This was extended proximally and distally with Galarza scissors. The arteriotomy was extended
distally through the plaque to an area of normal appearing internal carotid artery. The distal vessel loop was replaced with a short tip hockey-stick type vascular clamp. An endarterectomy was performed with a [place] elevator in the standard
fashion. The proximal extent of the plaque was transected with scissors. The distal end of the plaque in the internal carotid artery was feathered. No distal intimal flap was identified. The plaque extending into the external carotid artery was
everted. Once the plaque was fully removed the endarterectomy plane was irrigated with heparinized saline and any loose fronds of tissue were removed. A pre-cut piece of bovine pericardium was sewn in place using a running 6-0 Prolene suture. Prior
to the completion of the patch the common carotid was allowed to forward bleed and the external was allowed to back bleed. The area under the patch was irrigated with heparinized saline to remove any potential thrombus or debris. The anastomosis was
completed.
The external vessel loop was released first, followed by the common and then the internal. There was an excellent pulse in the distal internal carotid artery. An excellent quality Doppler signal in the distal internal carotid artery was also
confirmed. The patch suture line was closely inspected for hemostasis and was achieved. Protamine was administered. Hemostasis was achieved in the wound bed. The wound was irrigated with saline solution.
The wound was then closed in layers. Sterile skin glue was applied. The patient awoke from anesthesia with no immediate neuro deficits and was taken to the PACU in stable condition.
Attestation: I was present and responsible for the entire procedure
Signed:
Perez Pérez III, MD
[facility] Vascular Surgery
[phone] (cell)
[2024-05-14 10:49] LABS: Hematocrit 32.1 % (39.0-52.0); Hemoglobin 10.7 g/dL (13.0-18.0); Mean Corp Hgb Conc. 33.3 g/dL (33.0-37.0); Mean Corpuscular Hgb 33.8 pg (27.0-31.0); Mean Corpuscular Volume 101.3 fL (80.0-94.0); Platelet Count 180 10^3/uL (130-400); Red Blood Cell Count 3.17 10^6/uL (4.70-6.10); Red Cell Dist. Width 13.1 % (11.5-14.5); White Blood Cell Count 14.1 10^3/uL (4.8-10.8)
[2024-05-14 10:54] LABS: Blood Urea Nitrogen 29 mg/dl (9-20); Calcium 8.4 mg/dl (8.4-10.2); Carbon Dioxide 24 mmol/L (22-30); Chloride 108 mmol/L (98-107); Estimated Creatinine Clearance 52 ml/min; Glucose 135 mg/dl (70-99); Potassium 4.9 mmol/L (3.5-5.1); Sodium 136 mmol/L (135-145); eGFR > 60.00
[2024-05-14] MEDS: NSS 1000 IV ×2 (10:58→22:02)
--- NOTE | 2024-05-14 11:48 | SUR.PHASEI ---
patient arousable, awake, alert and oriented in pacu, received with levophed infusing, updated Naun Pham ADJUNCT PHYSICAL EDUCATION INSTRUCTOR with vitals and levo - will wean off levo in pacu and use amilcar if needed. Naun Pham visits in pacu. levophed off and BP within parameters. lab
work to Naun Pham. patient uses CPAP at home, sats drop on RA to 85 with sleep. nasal O2 on and sats 92- 98%. Discharge to CVICU and hand off at bedside.
--- NOTE | 2024-05-14 14:30 | PTCARENOTE ---
Patient received from Rhiannon RN; AAOx4, drowsy but responds spontaneously to RN and follows commands; Neurological checks WNL; AV paced on monitor; 18 beats of V-paced rhythm with HR 130's - UNDER CUTTING MACHINE OPERATOR Marli Pham notified and EKG ordered but no further
orders at this time; +2 DP and radial pulses; SpO2 95-99% on 2L NC; DTV; Left neck incision glued and approximated - swollen but soft to palpation; PIV x2 - #20 LAC and #18 right hand; NSS infusing - see nursing flowsheets for further details; Left
radial A-line zeroed and level; See nursing documentation for further information.
--- NOTE | 2024-05-14 16:01 | CM ---
spoke to pt in room, he is previndep, lives with his in a 2 story home with 2 steps to enter. he denies any dme's or dc planning needs. plan is for dc to home when medically stable.
--- NOTE | 2024-05-14 16:24 | PTCARENOTE ---
Neurological checks remain WNL; Patient still due to void; Patient tolerating diet well and resting comfortably in bed at this time
[2024-05-14] MEDS: ASPIR LOW (ENTERIC COATED) 81 MG PO (17:05)
--- NOTE | 2024-05-14 17:43 | CON.INTV ---
Consultation
Consultation Request
Date/Time Consultation Requested: 05/14/2024
Date/Time Consultation Performed: 05/14/2024
Requesting Provider: Perez Pérez
Performing Provider: Kinza Alicea
Reason for Consultation: Carotid endarterectomy
Medical History
-
Chief Complaint: Abnromal carotid imaging
History of Present Illness:
Patient is a very pleasant 84-year-old gentleman with known history of hypertension, bilateral carotid stenosis, hyperlipidemia, history of heart block status post pacemaker, chronic kidney disease stage III, sleep apnea, coronary artery disease who
presented to the [facility] for scheduled left carotid endarterectomy. Postsurgery he was transferred to CVICU and cleaning laborer consult was requested.
Past medical history. Coronary artery disease, hypertension, sleep apnea currently using CPAP at reportedly for pressure, history of aortic stenosis status post TAVR, history of heart block status post permanent pacemaker placement.
Social History
Tobacco: Smoker (currently 1/3 of a pack. smoking since age 12-15, more than 60 pack year smoking history )
Family History
Family History: Reviewed & Not Pertinent
Allergies / Home Medications
Allergies
Allergy/AdvReac Type Severity Reaction Status Date / Time
pollen extracts Allergy SEASONAL-NASAL Verified 05/06/24 13:00
SYMPTOMS
Home Medications
�Medication �Instructions �Recorded �Confirmed �Last Taken �Type
aspirin 81 mg tablet,delayed 81 mg PO QPM Blood Clot 03/30/18 05/14/24 05/13/24 20:00 History
release Prevention/Tx
cetirizine 10 mg tablet 10 mg PO HS Allergies 03/30/18 05/14/24 05/13/24 20:00 History
fluticasone propionate 50 2 spray intranasal DAILY Allergies 03/30/18 05/14/24 05/13/24 08:00 History
mcg/actuation nasal
spray,suspension
lisinopril 10 mg tablet 20 mg PO DAILY Blood Pressure 08/18/21 05/14/24 05/14/24 06:00 History
atorvastatin 40 mg tablet 40 mg PO DAILY High Cholesterol 12/28/23 03/18/25 03/17/25 06:00 History
cyanocobalamin (vitamin B-12) 1,000 mcg PO NOON Supplement 04/08/23 05/14/24 05/13/24 12:00 History
1,000 mcg tablet
metoprolol succinate 50 mg 50 mg PO DAILY 30 days #30 tabs 04/11/23 05/14/24 05/13/24 20:00 Rx
tablet,extended release 24 hr
amlodipine 2.5 mg tablet 2.5 mg PO DAILY 05/06/24 05/14/24 05/13/24 20:00 History
Review of Systems
-
Hematologic/Lymphatic: Other (All 14 systems reviewed and negative except as stated above in the history of present illness.)
Vitals / Labs / Diagnostic Testing
Vital Signs
Temp Pulse Resp BP Pulse Ox
98.6 F 85 18 107/52 95
05/14/24 15:00 05/14/24 16:00 05/14/24 16:00 05/14/24 16:00 05/14/24 16:00
Lab Data
05/14/24 10:20
05/14/24 10:20
Diagnostic Testing:
Physical Exam
-
HEENT: Normocephalic
Cardiovascular: Regular Rhythm
Respiratory: Clear
GI: Soft and Non Distended
Neurology: Awake and Alert
Skin: Warm and Dry
General: Comfortable
Assessment
-
Patient is s/p left carotid endarterectomy with patch angioplasty with bovine pericardium by vascular surgery service, POD #0
Continue observation following procedure
Follow neurovascular checks per protocol
ASA, metoprolol, atorvastatin as well as amlodipine and lisinopril.
Follow BP monitoring and parameters as set by primary team
Cardiac history noted
Monitor on telemetry
Pain control per protocol
RASS goal 0
Longstanding history of smoking, suspect patient might have underlying emphysema/COPD especially with his chronic cough with whitish expectoration
CXR reviewed indicating no acute disease
No prior PFTs for review
Encouraged IS
Recommend as needed albuterol/ipratropium
Diet advancement per protocol
Aspiration precautions
GI prophylaxis if indicated for stress ulcer prevention in the critically ill
Creat at baseline, follow UO
Critical I/Os
Void trials
Replete electrolytes as needed
No signs/symptoms suspicious for infectious etiology at this time
Will observe off antibiotics for now
Follow temperatures/CBC
Hb and platelets postoperatively stable
DVT prophylaxis on subcu heparin
Encouraged OOB/PT/OT/ambulation once cleared by surgical team
We will follow
Recommend outpatient follow-up with pulmonary clinic for formal PFTs as patient might benefit from inhaler therapy.
Recommend resuming CPAP at night, with an EPAP pressure of 5
[2024-05-14 17:56] LABS: Magnesium 1.8 mg/dl (1.6-2.3)
[2024-05-14] MEDS: NORVASC 2.5 MG PO (18:09)
[2024-05-14] MEDS: TOPROL XL 50 MG PO (18:09)
--- NOTE | 2024-05-14 20:00 | PTCARENOTE ---
Assumed care of patient at 1900. Patient found resting in bed at time of assessment. Patient is AOx4, follows commands appropriately, moves all extremities. Lung sounds are diminished throughout, saO2 94% on RA. Heart sounds are audible, but
distant, patient has PPM and is AV paced on director of cardiac cath lab with occasional v pacing, normal palpable pulses with no observable edema. Patient has round obese abdomen with active BS in all four quadrants and is voiding in urinal. There is an
incision in the left neck approx with surg adhesive ODALIS. Patient has 2xPIV and L radial Elizabeth. Currently receiving NSS @80mL/hr. Call smith within reach. Maintained on bedrest until AM.
[2024-05-14] MEDS: HEPARIN 5000 UNITS SC (20:16)
[2024-05-14] MEDS: ZYRTEC 10 MG PO (22:02)
--- NOTE | 2024-05-14 23:31 | PTCARENOTE ---
Patient reassessed. VSS. Remains in V paced/AV paced rhythm on the monitor. No c/o pain.
[2024-05-15] VITALS (10 sets, daily range): BP systolic 101–135; BP diastolic 44–64; BMI 36.0
[2024-05-15 05:11] LABS: Hemoglobin 9.9 g/dL (13.0-18.0); Mean Corpuscular Hgb 33.6 pg (27.0-31.0); Mean Corpuscular Volume 101.7 fL (80.0-94.0); Mean Platelet Volume 9.5 fL (7.4-10.4); Platelet Count 179 10^3/uL (130-400); Red Blood Cell Count 2.95 10^6/uL (4.70-6.10); Red Cell Dist. Width 13.1 % (11.5-14.5); White Blood Cell Count 14.8 10^3/uL (4.8-10.8)
[2024-05-15 05:13] LABS: APTT 29.4 Sec (23.4-35.0); INR 1.13; PT 14.8 Sec (11.4-14.6)
[2024-05-15 05:15] LABS: Blood Urea Nitrogen 39 mg/dl (9-20); Calcium 8.2 mg/dl (8.4-10.2); Carbon Dioxide 22 mmol/L (22-30); Chloride 106 mmol/L (98-107); Estimated Creatinine Clearance 48 ml/min; Glucose 116 mg/dl (70-99); Potassium 5.7 mmol/L (3.5-5.1); Sodium 135 mmol/L (135-145); eGFR 54.51
--- NOTE | 2024-05-15 05:47 | PTCARENOTE ---
Patient reassessed. AM hygiene care provided. AM labs obtained. Patient remains in V paced/AV paced rhythm. No c/o pain. Noted hyperkalemia with AM labs. Pending orders for lokelma administration. Call smith within reach.
[2024-05-15] MEDS: LOKELMA 10 GRAM PO (05:57)
--- NOTE | 2024-05-15 07:14 | DOWNTIME ---
There was a [employer] Downtime on 05/15/2024 from 0100 to 05/16/2023 at 0420 . Downtime documentation of patient's care, including medication administrations, has been reconciled in the electronic record per guidelines. Refer to the
patient's paper chart under the miscellaneous tab to see printed paper medication records and downtime forms.
--- NOTE | 2024-05-15 07:50 | W.PN.VS ---
Today's Communication / Plan
-
Seen and assessed with Dr. Mcrae
Assessment/Plan
-
Postop day 1 left CEA
Plan:
-DC A-line
-DC IV fluids
-Out of bed/ambulate
-Increase diet
-P.o. medications
-Repeat K
-Likely DC later today
Subjective Data
-
Date of Service: May 15, 2024
Patient seen at bedside same Dr. Mcrae. Patient offers no complaints at this time. No events overnight. K5.7 this morning was given Lokelma. Repeat K pending
Objective Data
-
Vital Signs
Temp Pulse Resp BP Pulse Ox
98.9 F 72 20 135/59 95
05/15/24 07:34 05/15/24 07:08 05/15/24 07:34 05/15/24 07:08 05/15/24 07:08
Intake and Output
05/14/24 05/15/24 05/16/24
06:59 06:59 06:59
Intake Total 1950 / 2029 80 / 80
Output Total 750 / 750
Balance 1200 / 1280 80 / 80
Intake:
Oral fluids 245 / 245
IV fluids (Total) 1705 / 1785 80 / 80
Normal Saline 1600 / 1680 80 / 80
levophed 5 / 5
normosol 100 / 100
Output:
Urine, Voided 750 / 750
Lab Results
05/15/24 04:31
Calcium 8.2 mg/dl (8.4-10.2) L 05/15/24 04:31
Magnesium 1.8 mg/dl (1.6-2.3) 05/14/24 10:20
Physical Exam
-
AAOx3
No tachypnea on room air
No tachycardia
Abdomen soft
Neck site clean, dry, intact, soft, flat
Moves all extremities
Tongue midline
--- NOTE | 2024-05-15 07:54 | W.PN.INTV ---
Today's Communication / Plan
Recommendations
- Recommend outpatient follow-up with pulmonary clinic for pulmonary function testing, information added to discharge folder
-If patient is transferred out of CVICU today, cancer registry coordinator service will sign off, please call as needed.
Assessment
-
Patient is a very pleasant 84-year-old gentleman with known history of hypertension, bilateral carotid stenosis, hyperlipidemia, history of heart block status post pacemaker, chronic kidney disease stage III, sleep apnea, coronary artery disease who
presented to the [facility] for scheduled left carotid endarterectomy. Postsurgery he was transferred to CVICU and cancer registry coordinator consult was requested.
Patient is s/p left carotid endarterectomy with patch angioplasty with bovine pericardium by vascular surgery service, POD #1
Continue observation following procedure
Follow neurovascular checks per protocol
ASA, metoprolol, atorvastatin as well as amlodipine and lisinopril.
Follow BP monitoring and parameters as set by primary team
Cardiac history noted
Monitor on telemetry
Pain control per protocol
RASS goal 0
Longstanding history of smoking, suspect patient might have underlying emphysema/COPD especially with his chronic cough with whitish expectoration
CXR reviewed indicating no acute disease
No prior PFTs for review
Encouraged IS
Recommend as needed albuterol/ipratropium
Diet advancement per protocol
Aspiration precautions
GI prophylaxis if indicated for stress ulcer prevention in the critically ill
Creat at baseline, follow UO
Critical I/Os
Void trials
Replete electrolytes as needed
No signs/symptoms suspicious for infectious etiology at this time
Will observe off antibiotics for now
Follow temperatures/CBC
Hb and platelets postoperatively stable
DVT prophylaxis on subcu heparin
Encouraged OOB/PT/OT/ambulation once cleared by surgical team
Recommend outpatient follow-up with pulmonary clinic for formal PFTs as patient might benefit from inhaler therapy.
Recommend resuming CPAP at night, with an EPAP pressure of 5
Total time spent on this consultation/encounter __25__ minutes which includes review of history, physical exam, medications, laboratory data, personal review of imaging, extensive review of outpatient records, discussion with care team and
respiratory therapy..
Subjective Dataa
Subjective Data
Date of Service:
Date of Service: May 15, 2024
Subjective:
Patient sitting in chair, eating breakfast, in no acute distress.
Review of Systems
Genitourinary: Other (All 14 systems reviewed and negative except as stated above in the history of present illness.)
Objective Data
Data Reviewed
Vital Signs / I&O / Oxygen:
Vital Signs
Temp Pulse Resp BP Pulse Ox
98.9 F 72 20 135/59 95
05/15/24 07:34 05/15/24 07:08 05/15/24 07:34 05/15/24 07:08 05/15/24 07:08
Intake and Output
05/14/24 05/15/24 05/16/24
06:59 06:59 06:59
Intake Total 1950 / 2030 80 / 80
Output Total 750 / 750
Balance 1200 / 1280 80 / 80
SaO2 95
Nasal Cannula flow liters per 2
minute
Physical Exam
General: Comfortable
HEENT: Normocephalic
Cardiovascular: Regular Rhythm
Respiratory: Clear and Non-Labored Respirations
GI: Soft and Non Distended
Neurology: Awake and AO x 3
Skin: Warm
Labs/Micro/Reports
Lab Data
05/15/24 04:31
Laboratory Results
05/15/24
04:31
PT 14.8 H
INR 1.13
APTT 29.4
--- NOTE | 2024-05-15 08:30 | PTCARENOTE ---
Patient received from maintenance technician 2nd shift RN; AAOx4, responds spontaneously to RN and follows commands; Neurological checks WNL; AV paced with V-pacing and SR on monitor; +2 DP and radial pulses; SpO2 93-98% on RA; Urinating in urinal and bathroom; Left
neck incision glued and approximated - swollen but soft to palpation; PIV x2 - #20 LAC and #18 right hand; Left radial A-line zeroed and level - discontinued as per XIOMARA Null order; See nursing documentation for further information.
[2024-05-15] MEDS: ZESTRIL 20 MG PO (08:35)
[2024-05-15] MEDS: LIPITOR 40 MG PO (08:35)
[2024-05-15] MEDS: HEPARIN 5000 UNITS SC (08:36)
[2024-05-15 11:26] LABS: Blood Urea Nitrogen 38 mg/dl (9-20); Calcium 8.5 mg/dl (8.4-10.2); Carbon Dioxide 23 mmol/L (22-30); Chloride 104 mmol/L (98-107); Estimated Creatinine Clearance 48 ml/min; Glucose 138 mg/dl (70-99); Potassium 4.8 mmol/L (3.5-5.1); Sodium 136 mmol/L (135-145); eGFR 54.51
--- NOTE | 2024-05-15 11:26 | CM ---
CM following for DC planning needs.
Antic. DC to home without any needs.
Plan: HOME, no needs.
[2024-05-15] MEDS: VITAMIN B-12 1000 MCG PO (11:28)
--- NOTE | 2024-05-15 12:23 | PTCARENOTE ---
Patient discharged home following results of potassium level; Discharge instructions reviewed with patient and his spouse at bedside - states full understanding and has no further questions at this time; PIVx2 removed at bedside; Telemetry pack
removed; Patient belongings with patient and his spouse; Taken by wheelchair to spouse's car
== END 2024-05-15 12:26 | disposition home or self-care (01) | DRG 39 ==
LOC: CVICU 05:55
PROVIDERS: Nurse Practitioner; ADMITTING PHYSICIAN Surgery Vascular Surgery; CONSULT PHYSICIAN Internal Medicine; PRIMARYCARE PHYSICIAN Family Medicine
PROC: 03CJ0ZZ Extirpation of Matter from Left Common Carotid Artery, Open Approach (ICD-10-PCS; 2024-05-14)
PROC: 03UJ0KZ Supplement Left Common Carotid Artery with Nonautologous Tissue Substitute, Open Approach (ICD-10-PCS; 2024-05-14)
DX: I65.23 Occlusion and stenosis of bilateral carotid arteries (principal); E78.00 Pure hypercholesterolemia, unspecified; N18.30 Chronic kidney disease, stage 3 unspecified; F17.210 Nicotine dependence, cigarettes, uncomplicated; I12.9 Hypertensive chronic kidney disease with stage 1 through stage 4 chronic kidney disease, or unspecified chronic kidney disease; I25.10 Atherosclerotic heart disease of native coronary artery without angina pectoris; I35.0 Nonrheumatic aortic (valve) stenosis; R05.3 Chronic cough; I44.7 Left bundle-branch block, unspecified; Z79.82 Long term (current) use of aspirin; Z79.899 Other long term (current) drug therapy; Z82.3 Family history of stroke; Z95.0 Presence of cardiac pacemaker; Z95.3 Presence of xenogenic heart valve
CPT/HCPCS: 88304; 88311; 35301; 36415; 71046; 80048; 83735; 85025; 85027; 85610; 85730; 93005; 95938; 95941; 95955

== ENCOUNTER → 2024-06-14 10:10 | Outpatient (REF) | payer OTHER, SELFPAY | LOC: RAD 10:10 | PROVIDERS: ATTENDING PHYSICIAN Physician Assistant; FAMILY PHYSICIAN Family Medicine | DX: I65.23 Occlusion and stenosis of bilateral carotid arteries (principal) | CPT/HCPCS: 93880 ==

== ENCOUNTER → 2024-10-10 07:21 | Outpatient (REF) | payer OTHER, SELFPAY | LOC: HWRCS 07:21 | PROVIDERS: ATTENDING PHYSICIAN Internal Medicine Interventional Cardiology; FAMILY PHYSICIAN Family Medicine | DX: I35.0 Nonrheumatic aortic (valve) stenosis (principal); I44.7 Left bundle-branch block, unspecified; I25.10 Atherosclerotic heart disease of native coronary artery without angina pectoris | CPT/HCPCS: 78452; 93017; A9500; J2785 ==

== ENCOUNTER → 2024-11-18 09:56 | Outpatient (REF) | payer OTHER, SELFPAY | LOC: RCS 09:56 | PROVIDERS: ATTENDING PHYSICIAN Physician Assistant Medical; FAMILY PHYSICIAN Family Medicine | DX: I35.0 Nonrheumatic aortic (valve) stenosis (principal); Z95.2 Presence of prosthetic heart valve | CPT/HCPCS: 93306 ==

== ENCOUNTER → 2025-01-14 12:45 | Outpatient (REF) | payer OTHER, SELFPAY | LOC: RAD 12:45 | PROVIDERS: ATTENDING PHYSICIAN Surgery Vascular Surgery; FAMILY PHYSICIAN Family Medicine | DX: I65.23 Occlusion and stenosis of bilateral carotid arteries (principal) | CPT/HCPCS: 93880 ==